=== PATIENT | male | born 1970 | race Caucasian/White ===

== ENCOUNTER → 2017-01-25 | Outpatient (CLI) | payer OTHER ==
[2017-01-25 12:40] LABS: ALT/SGPT 25 U/L (12-78); BLOOD UREA NITROGEN 11 mg/dl (7-18); BUN/CREATININE RATIO 9.8 (10-20); CALCIUM 9.3 mg/dl (8.5-10.1); CARBON DIOXIDE 30 mmol/L (21-32); CHLORIDE 105 mmol/L (98-107); CHOLESTEROL 213 mg/dl (0-200); GLUCOSE,FASTING 93 mg/dl (70-99); POTASSIUM 4.3 mmol/L (3.5-5.1); SODIUM 139 mmol/L (136-145); TRIGLYCERIDES 140 mg/dl (0-150); VERY LOW DENSITY LIPOPROT CALC 28 mg/dl
[2017-01-25 12:50] LABS: ALB/GLOB RATIO 1.3 (0.9-2); ALKALINE PHOSPHATASE 78 U/L (45-117); AST/SGOT 18 U/L (15-37); CHOLESTEROL/HDL RATIO 4.8; HDL CHOLESTEROL 44 mg/dl; LDL CHOLESTEROL CALCULATED 141 mg/dl
[2017-01-25 13:49] LABS: LYME DISEASE AB IGM NEG (NEG)
[2017-01-25 13:52] LABS: LYME DISEASE AB IGG NEG (NEG)
--- NOTE | 2017-02-02 10:14 | CODING QUERY MEDICAL NECESSITY ---
SUPPORTING DIAGNOSIS NEEDED Binu WISE, A supporting diagnosis is required for the test/procedure performed on this patient in order for us to be reimbursed by the patient's insurance. Please provide a supporting diagnosis for the following test/procedure listed below next to the test name along with your signature. *If there is no additional diagnosis for this patient that would support the following test/procedure please document that below next to the test/procedure. Test(s)/Procedure(s) that require a supporting diagnosis: * 22771 VITAMIN D ASSAY DIAGNOSIS: DATE OF SERVICE: 01/25/17 Provider Signature: Date: Thank you Dipesh Liao [facility] Information Management Once completed, please kindly fax back to [phone] For questions please call [phone]
== END | disposition home or self-care (01) ==
LOC: C.LABPBG 09:03
PROVIDERS: ATTEND Physician Assistant
DX: Z00.00 Encounter for general adult medical examination without abnormal findings (principal); Z13.21 Encounter for screening for nutritional disorder; R53.83 Other fatigue

== ENCOUNTER 2017-05-14 10:36 | Emergency (ER) | payer OTHER ==
[~2017-05-14] VITALS: Ht 180.3 cm; Wt 82.7 kg
[2017-05-14] MEDS ORDERED: NITROGLYCERIN 0.4 MG SL PER TAB CHARGE ONE (10:40)
[2017-05-14 10:42] VITALS: TEMP 36.9; Ht 180.3 cm; Wt 82.7 kg
[2017-05-14] MEDS: MoRPHine SULFATE 10 MG/ML CARP/VIAL IV PRN ×2 (10:50→12:46)
[2017-05-14 10:54] VITALS: O2SAT 100
--- NOTE | 2017-05-14 10:58 | EMERGENCY ROOM VISIT NOTE ---
History Report prepared by Brittany: Radames Craven Under the Supervision of: Dr. Cipriano Schwarz M.D. 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 He currently rates his pain a 9/10 in severity. The patient notes he went to [facility] and was prescribed ASA. He notes the chest pain did not subside and the clinic notified EMS. EMS administered 50 mcg of fentanyl, 1 dose of NTG, 4 mg Zofran, and 4 mg IV morphine. The patient denies any shortness of breath. He has a history of HTN, though denies any history of LA or HLD. 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 Please see Additional Medical History Sheet. Past Medical & Surgical Medical Problems: (1) HTN (hypertension) Family History Cancer Diabetes mellitus Gallbladder disease Hypertension Lung disease Social History Smoking Status: Current Every Day Smoker (3 ppd) Alcohol Use: none Drug Use: none Marital Status: Housing Status: lives with significant other Occupation Status: employed Current/Historical Medications Scheduled Lisinopril (Zestril), 30 MG PO DAILY Multivitamin (Multivitamin), 1 TAB PO DAILY Ranitidine Hcl (Zantac), 150 MG PO BID Scheduled PRN Oxycodone/Acetaminophen 5MG/325MG (Percocet 5MG/325MG), 1-2 TABLETS PO Q4H PRN for Pain Allergies Coded Allergies: No Known Allergies (Unverified , 05/14/17) Physical Exam Vital Signs Date Time Temp Pulse Resp B/P (MAP) Pulse Ox O2 Delivery O2 Flow Rate FiO2 05/14/17 15:01 80 18 116/72 98 Room Air 05/14/17 14:43 73 05/14/17 12:48 73 18 140/92 98 Room Air 05/14/17 11:20 85 19 113/70 100 Nasal Cannula 2.0 05/14/17 11:03 77 20 105/68 100 Nasal Cannula 2.0 05/14/17 10:54 100 Nasal Cannula 2.0 05/14/17 10:53 100 Nasal Cannula 2.0 05/14/17 10:53 93 20 143/91 100 Nasal Cannula 2.0 05/14/17 10:42 36.9 92 21 151/95 100 Room Air 05/14/17 10:42 100 Room Air 05/14/17 10:39 95 Physical Exam GENERAL: Patient awake, alert, oriented x 3. Patient follows commands. Patient does not appear toxic. Patient is adequately hydrated and well- nourished. Patient is in marked distress. SKIN: No erythema, pallor, cyanosis or rash HEENT: Normal head, pupils equal, reactive to light and accommodation. LUNGS: Clear to auscultation. No wheezes, no rales, no rhonchi. HEART: Regular rate and rhythm. No murmurs. No gallops. No rubs ABDOMEN: No masses, no rebound, no hepatomegaly or splenomegaly. EXTREMITIES: No signs of trauma. No pedal or pretibial edema. No calf or thigh tenderness. NEUROLOGIC: Cranial nerves II-XII within normal limits. No gross motor sensory function deficits. Medical Decision & Procedures ER Provider Diagnostic Interpretation: Radiology results as stated below per my review and radiologist interpretation: CHEST ONE VIEW PORTABLE CLINICAL HISTORY: Atypical chest pain COMPARISON STUDY: No previous studies for comparison. FINDINGS: The cardiac and mediastinal contours are normal. There is no evidence of focal pulmonary consolidation. There is no evidence of failure. No pleural effusions are visualized.[ IMPRESSION: No active disease in the chest. Electronically signed by: Franco Cobb M.D. 05/14/2017 11:05 AM Dictated Date/Time: 05/14/2017 11:[address] ANGIOGRAM OF THE CHEST CLINICAL HISTORY: Atypical chest pain COMPARISON STUDY: No previous studies for comparison. TECHNIQUE: Following the IV administration of 115 mL of Optiray-320, CT angiogram of the thorax was performed from the thoracic inlet to the lung bases utilizing the pulmonary embolus protocol. Images are reviewed in the axial, sagittal, and coronal planes. IV contrast was administered without complication. MIP imaging was performed. A dose lowering technique was utilized adhering to the principles of ALARA. CT DOSE: 369.09 mGy.cm FINDINGS: There is abnormal mid and distal esophageal wall thickening. There is abnormal soft tissue adjacent to the right side of the esophagus with the posterior mediastinum, consistent with mass/adenopathy. The ascending thoracic aorta measures 41 mm. There were no pulmonary artery filling defects to indicate acute pulmonary embolism. No pleural effusions are visualized. There are dependent atelectatic changes. There is no focal pulmonary consolidation. There is a 4 mm left upper lobe pulmonary nodule as visualized in image #[id number] IMPRESSION: 1. Abnormal wall thickening involving the mid and distal esophagus. 2. Abnormal soft tissue within the right posterior mediastinum esophageal region consistent with mass/adenopathy 3. GI consultation for endoscopic follow-up is recommended 4. 4 mm left upper lobe pulmonary nodule 5. No evidence of acute pulmonary embolism. Electronically signed by: Franco Cobb M.D. 05/14/2017 1:42 PM Dictated Date/Time: 05/14/2017 1:34 PM Laboratory Results 05/14/17 10:45 Red Blood Count 4.66, Mean Corpuscular Volume 88.0, Mean Corpuscular Hemoglobin 31.1, Mean Corpuscular Hemoglobin Concent 35.4, Mean Platelet Volume 9.2, Neutrophils (%) (Auto) 73.6, Lymphocytes (%) (Auto) 16.8, Monocytes (%) (Auto) 7.9, Eosinophils (%) (Auto) 1.3, Basophils (%) (Auto) 0.2, Neutrophils # (Auto) 9.42, Lymphocytes # (Auto) 2.15, Monocytes # (Auto) 1.01, Eosinophils # (Auto) 0.17, Basophils # (Auto) 0.02 05/14/17 10:45 Test 05/14/17 10:45 05/14/17 12:16 White Blood Count 12.80 K/uL (4.8-10.8) Red Blood Count 4.66 M/uL (4.7-6.1) Hemoglobin 14.5 g/dL (14.0-18.0) Hematocrit 41.0 % (42-52) Mean Corpuscular Volume 88.0 fL (80-100) Mean Corpuscular Hemoglobin 31.1 pg (25-34) Mean Corpuscular Hemoglobin Concent 35.4 g/dl (32-36) Platelet Count 244 K/uL (130-400) Mean Platelet Volume 9.2 fL (7.4-10.4) Neutrophils (%) (Auto) 73.6 % Lymphocytes (%) (Auto) 16.8 % Monocytes (%) (Auto) 7.9 % Eosinophils (%) (Auto) 1.3 % Basophils (%) (Auto) 0.2 % Neutrophils # (Auto) 9.42 K/uL (1.4-6.5) Lymphocytes # (Auto) 2.15 K/uL (1.2-3.4) Monocytes # (Auto) 1.01 K/uL (0.11-0.59) Eosinophils # (Auto) 0.17 K/uL (0-0.5) Basophils # (Auto) 0.02 K/uL (0-0.2) RDW Standard Deviation 44.9 fL (36.4-46.3) RDW Coefficient of Variation 14.0 % (11.5-14.5) Immature Granulocyte % (Auto) 0.2 % Immature Granulocyte # (Auto) 0.03 K/uL (0.00-0.02) Erythrocyte Sedimentation Rate 2 mm/hr (0-14) Prothrombin Time 10.2 SECONDS (9.0-12.0) Prothromb Time International Ratio 1.0 (0.9-1.1) Activated Partial Thromboplast Time 32.0 SECONDS (21.0-31.0) Partial Thromboplastin Ratio 1.2 Anion Gap 8.0 mmol/L (3-11) Est Creatinine Clear Calc Drug Dose 103.4 ml/min Estimated GFR () 111.5 Estimated GFR (Non- 96.2 BUN/Creatinine Ratio 22.9 (10-20) Calcium Level 9.4 mg/dl (8.5-10.1) Total Bilirubin 0.6 mg/dl (0.2-1) Aspartate Amino Transf (AST/SGOT) 17 U/L (15-37) Alanine Aminotransferase (ALT/SGPT) 27 U/L (12-78) Alkaline Phosphatase 84 U/L (45-117) Total Protein 7.3 gm/dl (6.4-8.2) Albumin 4.1 gm/dl (3.4-5.0) Globulin 3.2 gm/dl (2.5-4.0) Albumin/Globulin Ratio 1.3 (0.9-2) Bedside Troponin I < 0.030 ng/ml (0-0.045) Laboratory results as stated above per my review. Medications Administered Medications (Trade) Dose Ordered Sig/Simon Route Start Time Stop Time Status Last Admin Dose Admin Nitroglycerin (Nitrostat Tab) 0.4 mg STK-MED ONCE .ROUTE 05/14/17 10:40 05/14/17 10:41 DC 05/14/17 10:40 0.4 MG Morphine Sulfate (MoRPHine SULFATE INJ) 6 mg Q1H PRN IV 05/14/17 10:45 05/14/17 15:55 DC 05/14/17 12:46 6 MG ECG Indication: chest pain Rate (beats per minute): 82 Rhythm: normal sinus Findings: no acute ischemic change, no ectopy, other (Slight J point elevation) Change: Repeat ECG: NSR 67 Findings: Unchanged from previous. ED Course 1038: Past medical records reviewed. The patient was evaluated in room B1. A complete history and physical examination was performed. 1040: Ordered NTG 0.4 mg SL 1045: Ordered Morphine Sulfate 6 mg IV 1055: The patient was moved to C10. 1233: I reassessed the patient at this time. He is feeling better and resting comfortably. 1436: I reassessed the patient at this time. He is feeling better and resting comfortably. I discussed the results and treatment plan with the patient. I answered all pertaining questions that he had. He expressed understanding and verbalized agreement. The patient will be discharged home. Medical Decision Prior records/ancillary studies reviewed. Triage Nursing notes reviewed. The patient's history was concerning for chest pain. Differential diagnosis: Etiologies such as cardiac ischemia, aortic dissection, pulmonary embolism, pneumonia, pneumothorax, musculoskeletal, infections, pericarditis, myocarditis , esophageal rupture, gastrointestinal, as well as others were entertained. The patient is here with substernal chest pain. He arrived via ambulance and I gave medical command prior to his arrival. Multiple labs, EKG and imaging were obtained. Please see above. White count is slightly elevated. 2 sets of troponins were not elevated. EKG was unremarkable. The patient did not get relief with nitroglycerin. The patient was given multiple doses of morphine to control his pain. A CT was obtained to rule out possibility for PE. The CT did reveal a questionable mass behind his esophagus. This is most likely the cause of his pain. I'm concerned about possible esophageal cancer. At this point, I do not believe he has an esophageal rupture. The patient will need endoscopy. The patient wants to go home and is not willing to stay in the hospital at this time. He will be given a prescription for Percocet and and Ranitadine. Case management has been consulted to arrange GI follow-up [place] Drug Monitoring Program Search Results: no issues identified Medication Reconcilliation Current Medication List: was personally reviewed by me Blood Pressure Screening Patient's blood pressure: Normal blood pressure Impression Primary Impression: Esophageal mass Scribe Attestation The scribe's documentation has been prepared under my direction and personally reviewed by me in its entirety. I confirm that the note above accurately reflects all work, treatment, procedures, and medical decision making performed by me. Departure Information Dispostion Home / Self-Care Prescriptions Oxycodone/Acetaminophen 5MG/325MG (PERCOCET 5MG/325MG) Tab 1-2 TABLETS PO Q4H Y for Pain, #20 TAB Prov: Cipriano Schwarz M.D. 05/14/17 Ranitidine Hcl (ZANTAC) 150 Mg Tab 150 MG PO BID, #30 TAB Prov: Cipriano Schwarz M.D. 05/14/17 Referrals Dm Diggs D.OPedro (PCP) Forms Call Back Authorization, HOME CARE DOCUMENTATION FORM, IMPORTANT VISIT INFORMATION Patient Instructions My [facility] Additional Instructions 1 Percocet every 4 hours as needed for moderate to severe pain. 1 Zantac/ranitidine twice a day. Follow-up with your family physician and telephone answering service operator as soon as possible.
[2017-05-14 11:01] LABS: BASO % 0.2 %; BASO ABS # 0.02 K/uL (0-0.2); EOS % 1.3 %; EOS ABS # 0.17 K/uL (0-0.5); HEMOGLOBIN 14.5 g/dL (14.0-18.0); IG# 0.03 K/uL (0.00-0.02); LYMPH % 16.8 %; LYMPH ABS # 2.15 K/uL (1.2-3.4); MEAN CORPUSCULAR HEMOGLOBIN 31.1 pg (25-34); MEAN CORPUSCULAR HGB CONC 35.4 g/dl (32-36); MEAN PLATELET VOLUME 9.2 fL (7.4-10.4); MONO % 7.9 %; MONO ABS # 1.01 K/uL (0.11-0.59); NEUT % 73.6 %; NEUT ABS # 9.42 K/uL (1.4-6.5); PLATELET COUNT 244 K/uL (130-400); RED CELL DISTRIBUTION WIDTH SD 44.9 fL (36.4-46.3)
--- NOTE | 2017-05-14 11:07 | DIAGNOSTIC IMAGING REPORT ---
CHEST ONE VIEW PORTABLE CLINICAL HISTORY: Atypical chest pain COMPARISON STUDY: No previous studies for comparison. FINDINGS: The cardiac and mediastinal contours are normal. There is no evidence of focal pulmonary consolidation. There is no evidence of failure. No pleural effusions are visualized.[ IMPRESSION: No active disease in the chest. Electronically signed by: Franco Cobb M.D. 05/14/2017 11:05 AM Dictated Date/Time: 05/14/2017 11:05 AM
[2017-05-14 11:18] LABS: ALBUMIN 4.1 gm/dl (3.4-5.0); CALCIUM 9.4 mg/dl (8.5-10.1); CREATININE 0.94 mg/dl (0.60-1.40); POTASSIUM 3.5 mmol/L (3.5-5.1)
[2017-05-14 11:20] LABS: TOTAL PROTEIN 7.3 gm/dl (6.4-8.2)
[2017-05-14] MEDS ORDERED: MULT-506 PO (11:22)
[2017-05-14] MEDS ORDERED: LISI-863 PO (11:22)
[2017-05-14] MEDS ORDERED: OPTIRAY 320 IV PRN (13:00)
--- NOTE | 2017-05-14 13:43 | DIAGNOSTIC IMAGING REPORT ---
CT ANGIOGRAM OF THE CHEST CLINICAL HISTORY: Atypical chest pain COMPARISON STUDY: No previous studies for comparison. TECHNIQUE: Following the IV administration of 115 mL of Optiray-320, CT angiogram of the thorax was performed from the thoracic inlet to the lung bases utilizing the pulmonary embolus protocol. Images are reviewed in the axial, sagittal, and coronal planes. IV contrast was administered without complication. MIP imaging was performed. A dose lowering technique was utilized adhering to the principles of ALARA. CT DOSE: 369.09 mGy.cm FINDINGS: There is abnormal mid and distal esophageal wall thickening. There is abnormal soft tissue adjacent to the right side of the esophagus with the posterior mediastinum, consistent with mass/adenopathy. The ascending thoracic aorta measures 41 mm. There were no pulmonary artery filling defects to indicate acute pulmonary embolism. No pleural effusions are visualized. There are dependent atelectatic changes. There is no focal pulmonary consolidation. There is a 4 mm left upper lobe pulmonary nodule as visualized in image #[id number] IMPRESSION: 1. Abnormal wall thickening involving the mid and distal esophagus. 2. Abnormal soft tissue within the right posterior mediastinum esophageal region consistent with mass/adenopathy 3. GI consultation for endoscopic follow-up is recommended 4. 4 mm left upper lobe pulmonary nodule 5. No evidence of acute pulmonary embolism. Electronically signed by: Franco Cobb M.D. 05/14/2017 1:42 PM Dictated Date/Time: 05/14/2017 1:34 PM
[2017-05-14] MEDS ORDERED: RANI150T3 PO (14:50)
[2017-05-14] MEDS ORDERED: OXYC-57 PO (14:50)
[2017-05-14 15:01] VITALS: BP 116/72; PULSE 80; O2SAT 98
[2017-05-18] MEDS ORDERED: OXYC-57 PO (11:43)
[2017-05-18] MEDS ORDERED: RANI150T85 PO (11:54)
[2017-11-19] MEDS ORDERED: CEPH500C PO (09:14)
== END 2017-05-14 15:23 | disposition home or self-care (01) ==
LOC: EDBD 10:36 → C.EDB 10:38 → C.EDC 15:23
DX: K22.9 Disease of esophagus, unspecified (principal); I10 Essential (primary) hypertension; Z80.9 Family history of malignant neoplasm, unspecified; Z83.3 Family history of diabetes mellitus; Z82.49 Family history of ischemic heart disease and other diseases of the circulatory system; F17.210 Nicotine dependence, cigarettes, uncomplicated; Z79.899 Other long term (current) drug therapy

== ENCOUNTER → 2017-05-19 | Day surgery (SDC) | payer OTHER ==
[2017-05-18 11:44] VITALS: BMI 23.0
[~2017-05-19] VITALS: Ht 180.3 cm; Wt 77.3 kg
[~2017-05-19] MED LIST: CEPH500C PO; FENTANYL CITRATE INJ 50 MCG/1 ML 2 ML VIAL ONE; LIDOCAINE HCL 2% 2 ML VIAL (20MG/ML) ONE; LISI-863 PO; MULT-506 PO; OXYC-57 PO; PROPOFOL IV EMULSION 10 MG/ML 20 ML VIAL IV ONE; RANI150T85 PO
[2017-05-19 08:18] VITALS: Ht 180.3 cm; Wt 77.3 kg
--- NOTE | 2017-05-19 09:21 | Endo History and Physical ---
History & Physical Date of Service: May 19, 2017. Chief Complaint: ABNORMAL CT SCAN Referring Physician: DR CATINA YOU History of Present Illness Chest pain with abnormal CT Past Surgical History Hx Cardiac Surgery: No Hx Internal Defibrillator: No Hx Pacemaker: No Hx Abdominal Surgery: No Hx of Implantable Prosthesis: No Hx Post-Op Nausea and Vomiting: No Hx Cancer Surgery: No Hx Thoracic Surgery: No Hx Orthopedic: Yes (RT KNEE SX, LEFT KNEE SX X 3) Hx Urinary Tract Surgery: No Family History IBD Social History Smoking Status: Current Every Day Smoker Hx Substance Use: No Hx Alcohol Use: No Allergies Coded Allergies: No Known Allergies (Verified , 05/19/17) Current Medications Reported Home Medications Medications Dose Route/Sig Max Daily Dose Days Date Category Dose Instructions Zantac (Ranitidine HCl) 150 Mg Tab 150 Mg PO BID 05/18/17 Reported Percocet 5MG/325MG (Oxycodone/Acetaminophen) Tab 1 Tablet PO BID PRN 05/18/17 Reported PAIN Multivitamin (Multivitamins) Tab 1 Tab PO QAM 05/14/17 Reported Zestril (Lisinopril) 30 Mg Tab 30 Mg PO QAM 05/14/17 Reported Vital Signs Weight (Kilograms): 77.27 Height (Feet): 5 Height (Inches): 11 Date Time Temp Pulse Resp B/P (MAP) Pulse Ox O2 Delivery O2 Flow Rate FiO2 05/19/17 08:17 36.7 71 18 121/75 (90) 100 Room Air Physical Exam General Appearance: WD/WN, no apparent distress Respiratory/Chest: Auscultation: breath sounds normal Cardiovascular: Heart Auscultation: RRR Abdomen: Inspection & Palpation: soft Assessment and Plan EGD
--- NOTE | 2017-05-19 09:49 | GI REPORT ---
Procedure Date: 05/19/2017 8:37 AM Procedure: Upper GI endoscopy Indications: Abnormal CT of the GI tract, Unexplained chest pain Medicines: Monitored Anesthesia Care Complications: No immediate complications. Estimated blood loss: None. Estimated Blood Loss: Estimated blood loss: none. Procedure: Pre-Anesthesia Assessment: - Prior to the procedure, a History and Physical was performed, and patient medications, allergies and sensitivities were reviewed. The patient's tolerance of previous anesthesia was reviewed. - ASA Grade Assessment: III - A patient with severe systemic disease. After obtaining informed consent, the endoscope was passed under direct vision. Throughout the procedure, the patient's blood pressure, pulse, and oxygen saturations were monitored continuously. The scope was introduced through the mouth, and advanced to the third part of duodenum. The upper GI endoscopy was accomplished with ease. The patient tolerated the procedure well. Findings: The upper third of the esophagus, middle third of the esophagus and lower third of the esophagus were normal. Biopsies were taken with a cold forceps for histology. The Z-line was slightly irregular and was found 45 cm from the incisors. Biopsies were taken with a cold forceps for histology. The entire examined stomach was normal. Biopsies were taken with a cold forceps for Helicobacter pylori testing. The examined duodenum was normal. Impression: - Normal upper third of esophagus, middle third of esophagus and lower third of esophagus. Biopsied. - Z-line slightly irregular, 45 cm from the incisors. Biopsied. - Normal stomach. Biopsied. - Normal examined duodenum. Recommendation: - Await pathology results. - Consider referral to manager printing. Porter Patel M.D. Porter Patel MD 05/19/2017 9:48:56 AM This report has been signed electronically. Note Initiated On: 05/19/2017 8:37 AM I attest to the content of the Intraoperative Record and orders documented therein, exceptions below
--- NOTE | 2017-05-19 09:51 | Discharge Instructions ---
Endoscopy Patient Instructions Date / Procedure(s) Performed May 19, 2017. EGD Allergy Information Coded Allergies: No Known Allergies (Verified , 05/19/17) Discharge Date / Findings May 19, 2017. Normal EGD, biopsies pending. Medication Instructions Restart Stopped Medication(s): Restart all medications today. Provider Instructions Activity Restrictions - No exercising or heavy lifting for 24 hours. - Do not drink alcohol the day of the procedure. - Do not drive a car or operate machinery until the day after the procedure. - Do not make any important decisions or sign important papers in 24 hours after the procedure. Following Day: - Return to full activity which may include returning to work/school. Diet Start your diet with liquids and light foods (jello, soup, juice, toast). Then eat your usual diet if not nauseated. Treatment For Common After Affects For mild abdominal pain, bloating, or excessive gas: - Rest - Eat lightly - Lie on right side Follow-Up Information Follow-up with DR CATINA YOU as scheduled Anesthesia Information What You Should Know You have had a procedure that required some medicine to reduce anxiety and discomfort. This treatment is called moderate sedation. After receiving the treatment, you may be sleepy, but you will be able to breathe on your own. The effects of the treatment may last for several hours. Follow these instructions along with Activity/Diet recommendations noted above: * Do NOT do anything where dizziness or clumsiness would be dangerous. * Rest quietly at home today, then you can be up and about tomorrow. * Have a responsible person stay with you the rest of today. * You may have had an I.V. today. If so, you may take the dressing off later today. Recommendations Call your doctor if: * Trouble breathing * Continuous vomiting for more than 24 hours * Temperature above 101 degrees * Severe abdominal pain or bloating * Pain not relieved by pain medicine ordered * There is increased drainage or redness from any incision * A large amount of rectal bleeding greater than 2-3 tablespoons. (If you had a polyp/s removed or have hemorrhoids, a small amount of blood - from the rectum is to be expected.) * You have any unanswered questions or concerns. IN THE EVENT OF A SERIOUS EMERGENCY, GO TO THE NEAREST EMERGENCY ROOM Your discharge instructions were prepared by provider Porter Patel. Patient Instructions Signature Page Samuel Guillen Patient (or Guardian) Signature/Date: I have read and understand the instructions given to me by my caregivers. Caregiver/RN/Doctor Signature/Date: The above-named patient and/or guardian has received patient instructions on this date. + Original Patient Signature Page (only) stays with chart. Please make copy for patient.
--- NOTE | 2017-05-19 10:08 | Anesthesiology Progress Note ---
Anesthesia Post Op Note Date & Time May 19, 2017 at 10:08 Vital Signs Pain Intensity: 0 Vital Signs Past 12 Hours Date Time Temp Pulse Resp B/P (MAP) Pulse Ox O2 Delivery O2 Flow Rate FiO2 05/19/17 10:02 75 18 107/77 (87) 98 Room Air 05/19/17 09:47 75 18 108/62 (77) 97 Room Air 05/19/17 08:17 36.7 71 18 121/75 (90) 100 Room Air Notes Mental Status: alert / awake / arousable, participated in evaluation Pt Amnestic to Procedure: Yes Nausea / Vomiting: adequately controlled Pain: adequately controlled Airway Patency, RR, SpO2: stable & adequate BP & HR: stable & adequate Hydration State: stable & adequate Anesthetic Complications: no major complications apparent
[2017-05-19 10:17] VITALS: BP 106/70; PULSE 71; O2SAT 99
== END | disposition home or self-care (01) ==
LOC: C.GI 08:00
PROVIDERS: ATTEND Internal Medicine Gastroenterology
DX: R93.3 Abnormal findings on diagnostic imaging of other parts of digestive tract (principal); R07.9 Chest pain, unspecified; F17.200 Nicotine dependence, unspecified, uncomplicated; I10 Essential (primary) hypertension

== ENCOUNTER → 2017-06-26 | Outpatient (CLI) | payer OTHER ==
[~2017-06-26] MED LIST changes: -CEPH500C PO; -FENTANYL CITRATE INJ 50 MCG/1 ML 2 ML VIAL ONE; -LIDOCAINE HCL 2% 2 ML VIAL (20MG/ML) ONE; -LISI-863 PO; +LISI1TAB3 PO; +OPTIRAY 320 IV PRN; -PROPOFOL IV EMULSION 10 MG/ML 20 ML VIAL IV ONE; -RANI150T85 PO; +ZNTT/150 PO
--- NOTE | 2017-06-26 07:48 | DIAGNOSTIC IMAGING REPORT ---
CT ANGIOGRAM OF THE CHEST CLINICAL HISTORY: Pulmonary nodule. Mediastinal lesion. COMPARISON STUDY: Chest CT dated 05/14/2017. TECHNIQUE: Following the IV administration of 115 cc of Optiray 320, CT angiogram of the chest was performed from the upper abdomen to the thoracic inlet utilizing the pulmonary embolus protocol. Images are reviewed in the axial, sagittal, and coronal planes. 3-D MIPS images are created and assessed. IV contrast was administered without complication. A dose lowering technique was utilized adhering to the principles of ALARA. CT DOSE: 320.88 mGy.cm FINDINGS: Thyroid: Imaged portions of the thyroid gland are normal in size and attenuation. Thoracic aorta: There is mild ectasia of the ascending thoracic aorta which measures up to 4.1 cm. The remainder of the thoracic aorta is normal in caliber. The arch demonstrates standard 3-vessel anatomy. No dissection is seen. Pulmonary vasculature: The pulmonary trunk is normal in caliber. There are no filling defects identified in main, lobar, or segmental pulmonary branches to suggest pulmonary embolus. Heart: The heart is top normal in size and without pericardial effusion. Lungs and pleural spaces: There is no airspace consolidation or pleural effusion. Mild diffuse peribronchial thickening is noted. Dependent atelectasis is observed. There is an indeterminant but low suspicion 5 mm left upper lobe pulmonary nodule seen on image #165. This is unchanged from 05/14/2017. No new pulmonary nodule is seen. The trachea and central airways are clear. Mediastinum: Soft tissue thickening in the posterior mediastinum has almost completely resolved from 05/14/2017. Mild esophageal wall thickening is questioned. No mediastinal lymphadenopathy is seen. Anabel: Clear. Axillae: There is no axillary lymphadenopathy. Upper abdomen: There is a tiny hiatal hernia. Partially visualized upper abdominal viscera is within normal limits. Skeletal structures: No lytic or blastic bony lesions are seen. IMPRESSION: 1. There is no evidence of pulmonary embolus in the main, lobar, or segmental pulmonary arteries. 2. Abnormal soft tissue within the posterior mediastinum and around the esophagus has almost completely resolved from 05/14/2017. No pathologically enlarged mediastinal lymph nodes are identified. 3. Mild esophageal wall thickening is again suggested. If not already performed endoscopy could be considered for further assessment. 4. There is no airspace consolidation or pleural effusion. Mild diffuse peribronchial thickening suggests reactive airway disease. Clinical correlation will be required. 5. There is mild ectasia of the ascending thoracic aorta which measures up to 4.1 cm. The remainder of the thoracic aorta is normal in caliber. 6. A pathologically indeterminant but low suspicion 5 mm left upper lobe pulmonary nodule is unchanged. No new pulmonary nodule is identified. This can be followed if clinically warranted. See below. Please refer to below summary of Fleischner criteria recommendations for follow-up of incidental CT nodules ([place], Guidelines for management of small pulmonary nodules detected on CT scans: A statement from the Fleischner Society, Radiology 237: [phone].) SOLID NODULES Solitary nodule size: <6 mm * low risk patients: no follow-up needed * high risk patients: optional CT at 12 months Solitary nodule size: 6-8 mm * low risk patients: follow-up at 6-12 months, then consider further follow-up at 18-24 months * high risk patients: initial follow-up CT at 6-12 months and then at 18-24 months if no change Solitary nodule size: >8 mm * either low or high risk patients - consider follow-up CT at 3 months, and/or CT-PET, and/or biopsy Multiple nodules size: <6 mm * low risk patients: no routine follow-up * high risk patients: optional CT at 12 months Multiple nodules size: 6-8 mm * low risk patients: follow-up at 3-6 months, then consider further follow-up at 18-24 months * high risk patients: follow-up at 3-6 months, then at 18-24 months if no change Multiple nodules size: >8 mm * low risk patients: follow-up at 3-6 months, then consider further follow-up at 18-24 months * high risk patients: follow-up at 3-6 months, then at 18-24 months if no change Note: newly detected indeterminate nodule in persons 35 years of age or older. * low risk patients: minimal or absent history of smoking and/or other known risk factors * high risk patients: history of smoking or of other known risk factors (e.g. first degree relative with lung cancer, or exposure to asbestos, radon, uranium) * if a nodule up to 8 mm is partly solid or is ground glass further follow-up is required after 24 months to exclude possible slow growing adenocarcinoma ([facility]) SUBSOLID NODULES Solitary pure ground-glass nodule * nodule size <6 mm - no CT follow-up required * nodule size >=6 mm - follow-up CT at 6-12 months, then every 2 years until 5 years Solitary part-solid nodule * nodule size <6 mm - no CT follow-up required * nodule size >=6 mm - follow-up CT at 3-6 months. If unchanged, and solid component remains <6 mm, then annual follow-up for 5 years Multiple subsolid nodules * nodule size <6 mm - follow-up CT at 3-6 months, consider further follow-up at 2 and 4 years if stable * nodule size >=6 mm - follow-up CT at 3-6 months, subsequent management based on the most suspicious nodule(s) Electronically signed by: Silvio Alexis M.D. 06/26/2017 7:46 AM Dictated Date/Time: 06/26/2017 7:38 AM
== END | disposition home or self-care (01) ==
LOC: C.CTS 06:45
PROVIDERS: ATTEND Internal Medicine Critical Care Medicine
DX: R91.1 Solitary pulmonary nodule (principal); J98.59 Other diseases of mediastinum, not elsewhere classified

== ENCOUNTER → 2017-07-05 | Outpatient (CLI) | payer OTHER ==
[~2017-07-05] MED LIST changes: -OPTIRAY 320 IV PRN; +RANI150T85 PO; -ZNTT/150 PO
--- NOTE | 2017-07-05 18:46 | DIAGNOSTIC IMAGING REPORT ---
CHEST 2 VIEWS ROUTINE CLINICAL HISTORY: ABNORMAL LUNG SOUNDS dyspnea COMPARISON STUDY: 05/14/2017 FINDINGS: The bones soft tissues and hemidiaphragms are normal. The cardiomediastinal silhouette is normal. The lungs are clear. The pulmonary vasculature is normal. IMPRESSION: Negative chest. The above report was generated using voice recognition software. It may contain grammatical, syntax or spelling errors. Electronically signed by: Robert Flores M.D. 07/05/2017 6:45 PM Dictated Date/Time: 07/05/2017 6:45 PM
--- NOTE | 2017-07-05 18:47 | DIAGNOSTIC IMAGING REPORT ---
L HAND MIN 3 VIEWS ROUTINE CLINICAL HISTORY: MASS OF HAND pain. Mass. COMPARISON: None. DISCUSSION: The bones and joint spaces appear intact. There is no evidence of fracture, dislocation or bony disease. There is no evidence for soft tissue swelling. IMPRESSION: Negative study. The above report was generated using voice recognition software. It may contain grammatical, syntax or spelling errors. Electronically signed by: Robert Flores M.D. 07/05/2017 6:46 PM Dictated Date/Time: 07/05/2017 6:45 PM
== END | disposition home or self-care (01) ==
LOC: C.RAD 18:18
PROVIDERS: ATTEND Physician Assistant
DX: R09.89 Other specified symptoms and signs involving the circulatory and respiratory systems (principal); R22.30 Localized swelling, mass and lump, unspecified upper limb

== ENCOUNTER → 2017-08-02 | Outpatient (CLI) | payer OTHER ==
[2017-08-02 17:27] LABS: BASO % 0.5 %; BASO ABS # 0.04 K/uL (0-0.2); EOS % 3.6 %; HEMOGLOBIN 13.4 g/dL (14.0-18.0); IG# 0.01 K/uL (0.00-0.02); LYMPH % 29.1 %; LYMPH ABS # 2.43 K/uL (1.2-3.4); MEAN CELL VOLUME 89.7 fL (80-100); MEAN CORPUSCULAR HEMOGLOBIN 29.3 pg (25-34); MEAN CORPUSCULAR HGB CONC 32.7 g/dl (32-36); MEAN PLATELET VOLUME 9.7 fL (7.4-10.4); MONO % 5.9 %; MONO ABS # 0.49 K/uL (0.11-0.59); NEUT % 60.8 %; NEUT ABS # 5.09 K/uL (1.4-6.5); PLATELET COUNT 242 K/uL (130-400); RED CELL DISTRIBUTION WIDTH SD 46.2 fL (36.4-46.3); WHITE BLOOD COUNT 8.36 K/uL (4.8-10.8)
[2017-08-02 17:47] LABS: BLOOD UREA NITROGEN 15 mg/dl (7-18); CALCIUM 9.1 mg/dl (8.5-10.1); CARBON DIOXIDE 29 mmol/L (21-32); CREATININE 0.93 mg/dl (0.60-1.40); GLUCOSE 86 mg/dl (70-99); SODIUM 137 mmol/L (136-145)
== END | disposition home or self-care (01) ==
LOC: C.LABPBG 15:27
PROVIDERS: ATTEND Family Medicine
DX: R53.83 Other fatigue (principal); E55.9 Vitamin D deficiency, unspecified

== ENCOUNTER 2019-04-02 04:54 | Inpatient (IN) ==
--- NOTE | 2019-03-01 15:35 | PAT Medication Instructions ---
Medication Instructions Date of Service March 01, 2019 Home Medications lisinopril 20 mg PO QAM DO NOT take the morning of surgery lisinopril 20 mg PO QAM Other Notes If you have any questions please call us at [phone] or [phone] or [phone] or [phone]
--- NOTE | 2019-03-04 08:28 | Anesthesiology Consultation ---
Date of Service March 04, 2019 Assessment & Plan (1) Encounter for pre-operative examination: Chart Review Chart Review: Pending: Refer to Additional Notes / Consult section (pending preop testing (labs, EKG)) and Patient seen in Pre Admission Testing Teaching & Discussion Pre-Anesthesia Teaching/Discussion Notes: Instructed NPO after midnight before surgery,except medications with 15 cc of water. Medication instructions provided according to the PAT guidelines. History Surgery Operation Date: 04/02/19 08:50 Proposed Procedures p Bilateral Total Knee Replacements - Sj Crump MD Height/Weight Height: 5 ft 9 in Weight: 80.4 kg Allergies Allergy/AdvReac Type Severity Reaction Status Date / Time No Known Allergies Allergy Verified 02/25/19 08:00 Medications Home Medications Medication Instructions Recorded Confirmed Last Taken lisinopril 20 mg PO QAM 02/25/19 02/25/19 Unknown Past Medical History Medical History Dyslipidemia per records Acid reflux hx Nodule of left lung Thoracic aortic aneurysm incidental finding on 05/[address] with no evidence of aneurysm on f/u chest CT 05/2018*- PCP monitoring Hypertension [address]-Schlatter's disease left knee Osteoarthritis Exercise / Class Metabolic Activity II 4-5 Yardwork/Stairs/Walk up hill Past Family History Family History Mother Alcohol abuse by father Father Alcohol abuse by father Grandmother Diabetes Cardiac disorder Kidney disease Gallbladder disease Past Surgical History Surgical History Hx of arthroscopy of left knee Hx of arthroscopy of right knee Hx of breast lump removal left Hx of wisdom tooth extraction Past Anesthesia History No Hx of Anesthesia Complications and No Family Hx of Anesthesia Complications History of PONV No Hx of PONV and Hx of Motion Sickness Social History Smoking Status: Current every day smoker tobacco type: cigarettes Smoking cigarettes per day: 1-2 PPD x 35 years Do You Dip or Chew Tobacco: No Hx Alcohol Use: No Hx Substance Use: No Review of Systems Patient denies chest pain, shortness of breath, dyspnea on exertion, reflux, cough, wheezing, palpitations. Physical Exam Vital Signs VITALS BP 130/76 P 73 TEMP 98.1 SP02 97%RA RESP 18 PHYSICAL Full neck and c-spine range of motion. Full TMJ range of motion. TMD 3 finger breaths Mallampati Score 2 Dentition: no teeth on upper (full dentures on upper), several missing molars on lower Lungs: clear throughout to auscultation Cardiac: regular rate and rhythm, no murmurs noted Spine: normal Carotid arteries: negative bruit Extremities: no edema Testing Other Testing Carotid doppler: 01/10/19: "Normal study." B/L vertebral arteries. Widely parent b/l ICA. Chest CT: 06/12/18: Stable solid pulmonary nodules measuring up to 4 mm. This is consistent with benignity. No new nodule. No evidence of thoracic aortic aneurysm.
[2019-03-04 09:45] LABS: Basophils # (auto) 0.05 K/uL (0-0.2); Basophils % (auto) 0.7 %; Eosinophils % (auto) 4.5 %; Hematocrit (blood only) 45.9 % (42-52); Hemoglobin 15.3 g/dL (14.0-18.0); Immature Granulocytes # (auto) 0.01 K/uL (0.00-0.02); Immature Granulocytes % (auto) 0.1 %; Lymphocytes # (auto) 1.84 K/uL (1.2-3.4); Lymphocytes % (auto) 27.4 %; Mean Corpuscular Hemoglobin 30.1 pg (25-34); Mean Corpuscular Hgb Conc 33.3 g/dL (32-36); Mean Corpuscular Volume 90.4 fL (80-100); Mean Platelet Volume 10.1 fL (7.4-10.4); Monocytes # (auto) 0.57 K/uL (0.11-0.59); Monocytes % (auto) 8.5 %; Neutrophils # (auto) 3.94 K/uL (1.4-6.5); Neutrophils % (auto) 58.8 %; Platelet Count 188 K/uL (130-400); RDW Coefficient of Variation 14.2 % (11.5-14.5); RDW Standard Deviation 47.2 fL (36.4-46.3); Red Blood Count 5.08 M/uL (4.7-6.1); White Blood Count 6.71 K/uL (4.8-10.8)
[2019-03-04 09:59] LABS: Partial Thromboplastin Ratio 1.1; Partial Thromboplastin Time 31.1 Seconds (21.0-31.0); Prothrombin Time 10.1 Seconds (9.0-12.0)
[2019-03-04 10:52] LABS: BUN Creatinine Ratio 18.6 (10-20); Calcium 9.5 mg/dl (8.5-10.1); Creatinine Clr Calc Pharmacy 91.2 ml/min; Est GFR (African American) 104.5; Est GFR (Non-African American) 90.2; Potassium 4.3 mmol/L (3.5-5.1)
--- NOTE | 2019-03-29 09:33 | History and Physical Report ---
DATE OF ADMISSION: 04/02/2019 CHIEF COMPLAINT: Bilateral knee pain, left side greater than right. 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 He has got a long history of knee problems and had his left knee scoped twice, and the right done once. These were done in the and early 1999s. Over the past 15-20 years, he has just developed increased pain and discomfort in both knees. The left side is a bit worse than the right. He has been through extensive conservative treatment over the years including multiple injections as well as oral medicines. This has become less successful over time. He has trouble doing his work. He would like to have both knees fixed. He has chronic pain. He has a limited walking tolerance. He has nighttime pain. PAST MEDICAL HISTORY: 1. Hypertension. 2. History of smoking 60 pack years. PAST SURGICAL HISTORY: Include: 1. Left knee scope x2 in the . 2. Right knee scope in early . ALLERGIES: None. CURRENT MEDICATIONS: Lisinopril. SOCIAL HISTORY: A 48-year-old male. He is . 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 He does smoke. He has a 65-zccn-mdre history of smoking. FAMILY HISTORY: Noncontributory. REVIEW OF HISTORY: Negative for diabetes, neurologic problems, vascular problems or bleeding disorders. No chest pain or shortness of breath. No history of DVT or PE. PHYSICAL EXAMINATION: GENERAL: Reveals a healthy, pleasant 48-year-old male. He looks to be in good health. HEENT: Benign. NECK: Supple, no lymphadenopathy. LUNGS: Clear to auscultation. HEART: Has a regular rate and rhythm. ABDOMEN: Soft, nontender, nondistended. EXTREMITIES: Grossly neurovascularly intact except as follows: Examination of both knees reveals patient walks with a varus alignment to his knee. Examination of the left knee reveals a varus deformity with tenderness to palpation over the medial joint line. He has got bony hypertrophy medially. He walks with a varus thrust. Small knee effusion. Range of motion 5-125. No instability. No pain with hip motion. Examination of the right knee reveals varus deformity. He has got a varus thrust with weightbearing. Trace knee effusion. Tender with medial joint line. Range of motion 5-125. No instability. No pain with hip motion. X-RAYS: X-rays of both knee reveals advanced bilateral medial compartment DJD. He has got complete loss of medial joint space on both knees. Left-sided little bit worse than right. He has got osteophytes off the medial femoral condyle and medial tibial plateau. He has subchondral sclerosis. ASSESSMENT: A 48-year-old male with a history of bilateral knee scopes in the past with advanced bilateral knee degenerative joint disease. Fairly young gentleman, but advanced disease. He has failed conservative treatment and would like to have both knees replaced. PLAN: We had a long discussion as far as treatment. We talked about doing a single versus bilateral knee replacement. He is adamant about proceeding with both knees. I did talk about the increased risk of thrombosis as well as infection and he would like to proceed. We will plan on doing both knee replacements. The risks and benefits of this procedure were explained to the patient including but not limited to DVT, PE, , infection, neurological injury, vascular injury, bleeding problem, pain, limited range of motion, stiffness, failure to relieve symptoms, incomplete relief of symptoms, need for further surgery in future, fracture, leg length inequality, nerve palsy, etc. The patient understands and desires to proceed. Informed consent was obtained. Likely need nicotine patch in the hospital. He is planning to be discharged home using [facility]. He knows to hold the lisinopril the morning of surgery.
[2019-04-02] MEDS ORDERED: CeleBREX 200 MG CAP PO SCH (06:00)
[2019-04-02] MEDS ORDERED: METOCLOPRAMIDE HCL 10 MG TABLET PO SCH (06:00)
[2019-04-02] MEDS ORDERED: ACETAMINOPHEN 500 MG TAB PO SCH (06:00)
[2019-04-02] MEDS ORDERED: SCOPOLAMINE 1.5 MG TDSY TD SCH (06:00)
[2019-04-02] MEDS ORDERED: BUPIVACAINE LIPOSOME/PF 266 MG, BUPIVACAINE/EPINEPHRINE 50 ML, SODIUM CHLORIDE 0.9% 30 ... INFIL SCH (06:00)
[2019-04-02] MEDS ORDERED: GABAPENTIN 900 MG DOSE PO SCH (06:00)
[2019-04-02] MEDS ORDERED: FAMOTIDINE 20 MG TAB PO SCH (06:00)
[2019-04-02] MEDS ORDERED: LR 60ML/HR IV SCH (06:00)
[2019-04-02] MEDS ORDERED: LR 500ML BOLUS, THEN 15ML/HR IV SCH (06:00)
[2019-04-02] MEDS ORDERED: CEFAZOLIN 2000MG 2,000 MG/15 ML SYR IV SCH (06:00)
[2019-04-02] MEDS ORDERED: ROPIVACAINE 0.5% 5 MG/ML 30 ML VIAL ONE (06:25)
[2019-04-02] MEDS ORDERED: BUPIVACAINE 0.5 % 5 MG/1 ML PF 10ML VIAL ONE (06:25)
[2019-04-02] MEDS ORDERED: MIDAZOLAM HCL 1 MG/ML 2ML VIAL ONE ×2 (06:27→07:07)
[2019-04-02] MEDS ORDERED: fentaNYL citrate 100 MCG/2 ML VIAL ONE (06:27)
[2019-04-02] MEDS ORDERED: PROPOFOL IV EMULSION 10 MG/ML 20 ML VIAL IV ONE ×3 (06:28→07:55)
[2019-04-02] MEDS ORDERED: TRANEXAMIC ACID 1,000 MG **IV Intra-op IV SCH (06:30)
[2019-04-02] MEDS ORDERED: SODIUM CHLORIDE 0.9% PF 50 ML VIAL ONE (06:37)
[2019-04-02] MEDS ORDERED: BUPIVACAINE/EPINEPHRINE 0.25% 1:200,000 30 ML VIAL ONE (06:37)
[2019-04-02] MEDS ORDERED: BACITRACIN INJ 50,000 UNIT VIAL ONE ×2 (06:37→06:54)
[2019-04-02] MEDS ORDERED: BUPIVACAINE LIPOSOME 1.3% 266 MG/20 ML VIAL ONE (06:37)
[2019-04-02] MEDS ORDERED: PHENYLEPHRINE 100MCG/ML 5ML SYR IV PRN (06:41)
[2019-04-02] MEDS ORDERED: ATROPINE SULFATE 0.1 MG/ML 10ML SYR IV PRN (06:41)
[2019-04-02] MEDS ORDERED: KETOROLAC 30 MG/ML VIAL IV PRN (06:41)
[2019-04-02] MEDS ORDERED: ONDANSETRON INJ 2 MG/ML 2 ML VIAL IV PRN (06:41)
[2019-04-02] MEDS ORDERED: ePHEDrine sulfate 50 MG/ML AMP IV PRN (06:41)
[2019-04-02] MEDS ORDERED: HYDROmorphone INJ 1 MG/ML SYRINGE IV PRN (06:41)
--- NOTE | 2019-04-02 06:54 | History & Physical Bridge Note ---
Date of Service April 02, 2019 History & Physical Bridge Note I have examined the patient, reviewed the History & Physical and in the interval since the performance of the History & Physical I have noted the following changes of clinical significance: no changes noted
[2019-04-02] MEDS ORDERED: KETAMINE HCL INJ 50 MG/ML 10 ML VIAL ONE (07:16)
[2019-04-02] MEDS ORDERED: GLYCOPYRROLATE 0.2 MG/ML VIAL ONE (07:19)
[2019-04-02] MEDS ORDERED: ONDANSETRON INJ 2 MG/ML 2 ML VIAL ONE (07:19)
--- NOTE | 2019-04-02 10:15 | Post Operative Brief Note ---
PG Immediate Post Op with CF Date of Surgery April 02, 2019 Pre & Post Diagnosis Operation Date: 04/02/19 07:00 Pre-Op Diagnosis: Bilateral Knee Advanced Degenerative Joint Disease Post-Op Diagnosis: Bilateral Knee Advanced Degenerative Joint Disease I identified the patient and participated in the time-out.: Yes Procedure Operation Date: 04/02/19 07:00 Actual Procedures p Bilateral Total Knee Arthroplasty(Bilateral) - Sj Crump MD Surgeon Sj Crump MD Fisher Quahog Duyen, PAC Estimated Blood Loss 100 Findings Consistent with Post-Op Diagnosis Fluids 1000 cc Specimens Specimen Description: A. Left Knee Bone and Tissue B. Right Knee Bone and Tissue Drains Sinha Catheter (A 16 [place]ese sinha catheter was inserted by ROSE Berg, without difficulty, clear yellow urine obtained, output to be monitored by Anesthesia.) Anesthesia Type Spinal MAC Complications none Disposition Accompanied Patient To Recovery: Yes Disposition: Recovery Room
[2019-04-02] MEDS ORDERED: MEPERIDINE HCL 25 MG/ML CARP ONE (10:28)
--- NOTE | 2019-04-02 10:34 | XRay Report ---
XR knee LT 1 or 2V routine HISTORY: 48 years-old Male Surgical Post Op left knee total joint arthroplasty. History of genital d isease COMPARISON: Bilateral knee radiographs 11/19/2018 TECHNIQUE: 2 views of the left knee FINDINGS: Left knee total joint arthroplasty and patella resurfacing demonstrates satisfactory alignment. Anter ior midline skin yeni are noted along with expected postsurgical soft tissue swelling and deep tis miles air. Surgical drainage catheter is noted. No acute fracture, dislocation or opaque foreign body. IMPRESSION: Satisfactory alignment of the left knee total joint arthroplasty. The above report was generated using voice recognition software. It may contain grammatical, syntax o r spelling errors. Electronically signed by: Chemo Sommer M.D. 04/02/2019 10:32 AM
--- NOTE | 2019-04-02 10:35 | XRay Report ---
XR knee RT 1 or 2V routine HISTORY: 48 years-old Male Surgical Post Op right knee total joint arthroplasty COMPARISON: Bilateral knee radiographs 11/19/2018 TECHNIQUE: 2 views of the right knee FINDINGS: Right knee total joint arthroplasty and patella resurfacing. Satisfactory alignment with anterior mid line skin yeni, expected postsurgical soft tissue swelling and deep tissue air with surgical drain age catheter. No acute fracture, dislocation or opaque foreign body. IMPRESSION: Satisfactory alignment of the total joint arthroplasty. The above report was generated using voice recognition software. It may contain grammatical, syntax o r spelling errors. Electronically signed by: Chemo Sommer M.D. 04/02/2019 10:33 AM
[2019-04-02] MEDS ORDERED: MEPERIDINE HCL 25 MG/ML CARP IV STA (11:00)
--- NOTE | 2019-04-02 11:13 | Anesthesiology Progress Note ---
Date of Service April 02, 2019 Anesthesia Post Procedure Vital Signs Vital Signs: Temp Pulse Pulse Resp BP Pulse Ox 04/02/19 11:10 36.5 C 68 19 120/87 100 04/02/19 11:00 72 15 119/81 100 04/02/19 10:50 58 L 14 129/81 100 04/02/19 10:40 66 20 109/83 100 04/02/19 10:30 75 24 130/68 98 04/02/19 10:20 36.1 C L 74 18 125/71 100 04/02/19 10:11 36.0 C L 76 24 110/79 100 04/02/19 05:32 36.7 C 76 16 145/99 H 99 Transfer of Care Handoff Completed per policy Notes Mental Status: alert / awake / arousable Patient Amnestic to Procedure: Yes Nausea / Vomiting: adequately controlled Pain: adequately controlled Airway Patency, RR, SpO2: stable & adequate BP & HR: stable & adequate Hydration State: stable & adequate Neuraxial Anesthesia: was administered and sensory block is resolving Anesthetic Complications: no major complications apparent
--- NOTE | 2019-04-02 11:16 | Operative Report ---
DATE OF OPERATION: 04/02/2019 SURGEON: Sj Crump MD REPAIR ARMATURE WINDER: ROSE Calabrese PREOPERATIVE DIAGNOSIS: Bilateral knee degenerative joint disease. POSTOPERATIVE DIAGNOSIS: Bilateral knee degenerative joint disease. PROCEDURE PERFORMED: Bilateral cemented posterior stabilized total knee arthroplasty. COMPLICATIONS: None. ESTIMATED BLOOD LOSS: 100 mL. FLUID REPLACEMENT: 1000 mL crystalloid fluid replacement. ANESTHESIA: Spinal anesthesia. SPECIMENS: Bilateral knee sent for pathology. TOURNIQUET TIME: Left side tourniquet time was 58 minutes at 300 mmHg. Right side tourniquet 59 minutes at 300 mmHg. 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 He had a tooth knee scopes on the left side, one on the right. I have been treating him conservatively for the past several years. He had failed this treatment. It is really affecting his quality of life and ability to maintain his occupation. X-rays showed advanced DJD. He elected to proceed with bilateral total knee arthroplasties. OPERATIVE FINDINGS: Operative findings revealed advanced grade 4 [id number] disease in the medial compartment of both knees. He had bony eburnation and sclerosis. He had moderate sized joint effusion with varus deformities to both knees and osteophytes, particularly in the medial side of both knees. OPERATIVE IMPLANTS: Left-sided implants consisted of: 1. A Biomet Vanguard size 72.5 left posterior bifemoral component. 2. A Biomet size 79 tibial tray. 3. A 10 mm posterior stabilized polyethylene insert. 4. A 34 x 8.5 all poly patella. Right-sided implants consisted of: 1. A Biomet Vanguard size 72.5 right posterior stabilized femoral component. 2. Biomet size 79 tibial tray. 3. A 10 mm posterior stabilized polyethylene insert. 4. A 34 x 8.5 all poly patella. OPERATIVE PROCEDURE: The patient was taken to the operating room, identified and placed on the operating table in supine position. All contact areas were appropriately padded. IV antibiotics provided by anesthesia team. Spinal anesthetic had been implemented in the holding area. Parham catheter was placed in sterile fashion. Bilateral thigh high tourniquets were placed. Both lower extremities were then prepped and draped in usual sterile fashion. Attention was first drawn to the left leg. Left leg was elevated and exsanguinated with an Esmarch and tourniquet was placed at 300 mmHg. An anterior approach to the left knee was then performed through a longitudinal incision centered over the patella. Sharp dissection was carried through subcutaneous tissues down to the level of the extensor mechanism. Medial parapatellar arthrotomy incision was made. Significant medial subperiosteal dissection was performed to release the medial side. The fat pad resected from beneath the patellar tendon. The patella was everted and knee was flexed. The osteophytes were taken off the distal femur. The ACL and PCL were then released from distal femur and the tibia subluxated anteriorly. External tibial alignment jig was then placed in the anterior face of the tibia and adjusted 16 mm medially. Proximal tibial cut was made to remove about a millimeter of bone from most deficient aspect of the medial tibial plateau. Some osteophytes were taken off medial and posteromedially. Tibia sized to a size 79. Attention was then drawn to the femur. The distal femur was entered with a sharp drill bit. Intramedullary canal was suctioned. A left 6-degree valgus cutting guide was placed. Distal femoral cutting block was pinned in place. Distal femoral cut was made to take an additional 3 mm of bone off the distal femur. The femur was then sized to a size 72.5. We did downsize this slightly. The AP cutting block was pinned parallel to the epicondylar axis, which was 5 degrees of external rotation. The anterior cut, anterior chamfer, posterior cut, posterior chamfer cuts were made. Box cutting guide was placed and adjusted slightly lateral and the box cut was made. The knee was flexed. The remnants of the medial and lateral menisci were excised. The osteophytes were taken off the posterior aspect of the femur. Trial femoral component was placed. Tibial tray was pinned in maximum external rotation and the drill and stem punch were used to create the defect in proximal tibia for the tibial tray. The knee was then trialed and the 10 mm insert fit most appropriately. Attention was then drawn to patella. The patella was cleaned of all soft tissues. Patella thickness measured 26 mm in thickness, it was cut down to 15. It was sized to a size 34 patella. Lug holes were drilled for 34 patella. Osteophytes removed. Patella button was placed. Knee was taken through range of motion, patella tracked nicely with no thumbs test. Attention was then drawn toward placement of permanent components. All trial components were removed. Bone plug was placed in the distal femur to limit blood loss. A double batch of Palacos G cement was mixed. Biomet Vanguard size 72.5 left posterior bifemoral component, size 79 tibial tray, 10 mm posterior stabilized polyethylene insert, and a 34 x 8.5 all poly patella then cemented in place. Knee was brought out into full extension until cement hardened. A final cement check was then performed. Pericapsular tissues were injected with the mix of Exparel, normal saline and 0.5% Marcaine with epinephrine. We put half of it in this knee and half on the second knee. Final cement check was then performed. The tourniquet was then let down for final tourniquet time of 58 minutes. Hemostasis was assured with use of electrocautery. The patient did receive 1 gram of tranexamic acid. The extensor mechanism was then closed with combination of #1 PDS suture and #1 Vicryl suture in a [id number] fashion. The extensor mechanism was checked and found to be intact and subcutaneous tissue was then closed with #2 Dexon suture in a buried interrupted fashion. Skin was closed with skin yeni. Leg was then cleaned, dried and a sterile dressing of Xeroform, 4 x 4 and sterile cast padding and Rolf bandage were applied. During closing of the subcutaneous tissues and skin of the left knee, a similar procedure was begun on the right knee. The right leg was elevated and exsanguinated with use of an Esmarch and tourniquet was placed at 300 mmHg. An anterior approach of the right knee was then performed through a longitudinal incision centered over the patella. Sharp dissection was carried through subcutaneous tissues down to the level of the extensor mechanism. A medial parapatellar arthrotomy incision was made. Some subperiosteal dissection was carried out medially. The fat pad resected from beneath the patellar tendon. The lateral patellofemoral ligament was released. The patella was everted and knee was flexed. The osteophytes were taken off the distal femur. The ACL and PCL were then released from distal femur and the tibia subluxated anteriorly. External tibial alignment jig was then placed in the anterior face of the tibia and adjusted 16 mm medially. Proximal tibial cut was made to remove about a millimeter or 2 of bone from most deficient aspect of the medial tibial plateau. Some osteophytes were taken off medial and posteromedially. Tibia sized to a size 79. Attention was then drawn to the femur. The distal femur was entered with a sharp drill. Intramedullary canal was suctioned. Right 6 degree valgus cutting guide was placed. Distal femoral cutting block was pinned in place. Distal femoral cut was made to take an additional 3 mm of bone off distal femur. Femur was then sized to a size 72.5. We did downsize this slightly. The AP cutting block was pinned parallel to the epicondylar axis, which was 3 degrees of external rotation. The anterior cut, anterior chamfer cut, posterior cut, posterior chamfer cuts were made. Box cutting guide was placed and adjusted slightly lateral and box cut was made. The knee was flexed. The remnants of medial and lateral menisci were excised. The osteophytes were taken off the posterior aspect of the femur. Trial femoral component was placed. Tibial tray was pinned in maximum external rotation and the drill and stem punch were used to create defect in proximal tibia for the tibial tray. The knee was then trialed and the 10 mm insert fit most appropriately. Attention was then drawn to patella. The patella was cleaned of all soft tissues. Patella thickness measured 26 mm in thickness, it was cut down to 15. It was sized to a size 34 patella. Lug holes were drilled for 34 patella. Lateral osteophyte was removed. Patella button was placed. Knee was taken through range of motion and the patella tracked nicely with no thumbs test. Attention turned toward placement of permanent components. All trial components were removed. Bone plug was placed in the distal femur to limit blood loss. A double batch of Palacos G cement was mixed. Biomet Vanguard size 72.5 right posterior stabilized femoral component, size 79 tibial tray, a 10 mm posterior stabilized polyethylene insert, and a 34 x 8.5 all poly patella then cemented in place. Knee was brought into full extension until cement hardened. A final cement check was then performed. The subcutaneous tissues were then injected with 50 mL of the remaining mixture of Exparel, normal saline and 0.5% Marcaine with epinephrine. The wound was irrigated extensively. The tourniquet was let down for final tourniquet time of 59 minutes. Hemostasis was assured using electrocautery. The extensor mechanism was then closed with combination of #1 PDS suture and #1 Vicryl suture in a eriegn-sf-blarr fashion. Extensor mechanism was checked and found to be intact. Subcutaneous tissue was then closed with #2 Dexon suture in a buried interrupted fashion. Skin was closed with skin yeni. Leg was then cleaned, dried and a sterile dressing of Xeroform, 4 x 4, sterile cast padding and Rolf bandage were applied. We then removed the drapes and some additional soft roll and Rolf bandage were then used to place on the left leg as well. The patient was then transferred to the recovery room in stable condition. The patient tolerated the procedure well with no complications. All needle and sponge counts were correct at the end of the operation. I attest to the content of the Intraoperative Record and any orders documented therein. Any exception s are noted below.
[2019-04-02] MEDS ORDERED: NALOXONE HCL 0.4 MG/1 ML VIAL/CARP IV PRN (11:30)
[2019-04-02] MEDS ORDERED: METOCLOPRAMIDE HCL INJ 5 MG/ML 2 ML VIAL IV PRN (11:30)
[2019-04-02] MEDS ORDERED: ALUMINUM/MAGNESIUM SUSP 30 ML UDC PO PRN (11:30)
[2019-04-02] MEDS ORDERED: MAGNESIUM HYDROXIDE SUSP 30 ML UDC PO PRN (11:30)
[2019-04-02] MEDS ORDERED: BISACODYL 10 MG SUPP PR PRN (11:30)
[2019-04-02] MEDS ORDERED: TAMSULOSIN HCL 0.4 MG CAP PO PRN (11:30)
[2019-04-02] MEDS: SODIUM CHLORIDE 0.9% 1000ML 1,000 ML IV SCH ×3 (12:43→22:40)
[2019-04-02] MEDS: KETOROLAC 30 MG/ML VIAL IV SCH ×3 (12:43→23:02)
[2019-04-02] MEDS: NICOTINE 21 MG/24 HR TDSY TD SCH (12:59)
[2019-04-02] MEDS: ACETAMINOPHEN 500 MG TAB PO SCH ×2 (13:52→22:07)
[2019-04-02] MEDS: CEFAZOLIN 2000MG 2,000 MG/15 ML SYR IV SCH ×2 (13:54→22:08)
[2019-04-02] MEDS: OXYCODONE HCL IR 5 MG TAB (IMMEDIATE RELEASE) PO PRN ×2 (14:38→18:23)
[2019-04-02] MEDS: HYDROmorphone INJ 0.5 MG/0.5 ML SYR IV PRN ×2 (15:43→22:34)
[2019-04-02] MEDS ORDERED: TRANEXAMIC ACID 1,000 MG in 0.9 % SODIUM CHLORIDE 100 ML IV SCH (16:17)
[2019-04-02] MEDS: CHECK SCOPOLAMINE PATCH PLACEMENT SCH ×2 (17:05→23:47)
[2019-04-02] MEDS: ASCORBIC ACID 500 MG TAB PO SCH (17:58)
[2019-04-02] MEDS: FERROUS GLUCONATE 324 MG TAB PO SCH (17:58)
--- NOTE | 2019-04-02 19:24 | Progress Note ---
DATE: 04/02/2019 SUBJECTIVE: A 48-year-old gentleman postop from bilateral knee replacements. He is doing pretty well. Having a decent amount of pain. He has been slow to respond to pain medicine. Denies any chest pain or shortness of breath. Not feeling dizzy or lightheaded. The right leg is bothering more than the left. OBJECTIVE: VITAL SIGNS: Temperature 36.7. Vital signs stable. GENERAL: Healthy, pleasant, middle-aged male. He is sitting up in bed and looks quite comfortable. Does not look in any distress. EXTREMITIES: Examination of both legs revealed legs to be well aligned. Dressings are clean, dry, and intact. He can dorsiflex and plantarflex both feet and all toes appropriately. He has got good brisk refill. Good distal pulse distally. Sensory exam is intact to light touch. X-RAYS: X-rays of both knees from recovery room reviewed. It shows bilateral cemented posterior stabilized total knee arthroplasties. Components looked to be in good position. No signs of problems. ASSESSMENT: 48-year-old gentleman postop from bilateral knee replacements, doing okay. Having a significant amount of pain and we will try and work on getting that under control. He is neurologically intact. PLAN: 1. DVT prophylaxis including thigh-high TEDs, SCDs, and aspirin twice a day. 2. PT/OT. Weight bear as tolerated. Bilateral total knee protocol. 3. Pain control, doing okay with current pain regimen. We are going to treat him with Tylenol round the clock and Toradol. He is getting IV Dilaudid and we likely will change him to p.o. Dilaudid if he is not doing any better on the oxycodone over the next 12 hours. 4. IV antibiotics x24 hours. 5. Disposition: Plan to discharge to home with some home health once adequately recovered.
[2019-04-02] MEDS: HYDROmorphone HCL 2 MG TAB PO PRN ×2 (19:52→21:03)
[2019-04-02] MEDS: SENNA 8.6 MG TAB PO SCH (20:16)
[2019-04-02] MEDS: ASPIRIN 81 MG ECTAB PO SCH (20:16)
[2019-04-02] MEDS: DOCUSATE SODIUM 100 MG CAP PO SCH (20:16)
[2019-04-03] MEDS: HYDROmorphone HCL 2 MG TAB PO PRN ×4 (01:37→16:30)
[2019-04-03] MEDS: KETOROLAC 30 MG/ML VIAL IV SCH ×4 (05:12→23:41)
[2019-04-03] MEDS: ACETAMINOPHEN 500 MG TAB PO SCH ×3 (05:16→22:36)
[2019-04-03 06:11] LABS: Hematocrit (blood only) 25.8 % (42-52); Hemoglobin 8.7 g/dL (14.0-18.0); Mean Corpuscular Hemoglobin 30.3 pg (25-34); Mean Corpuscular Hgb Conc 33.7 g/dL (32-36); Mean Corpuscular Volume 89.9 fL (80-100); Platelet Count 132 K/uL (130-400); RDW Coefficient of Variation 13.6 % (11.5-14.5); RDW Standard Deviation 45.5 fL (36.4-46.3); Red Blood Count 2.87 M/uL (4.7-6.1); White Blood Count 6.96 K/uL (4.8-10.8)
[2019-04-03 06:28] LABS: BUN Creatinine Ratio 11.2 (10-20); Creatinine Clr Calc Pharmacy 85.9 ml/min; Est GFR (African American) 97.3; Est GFR (Non-African American) 83.9; Potassium 4.3 mmol/L (3.5-5.1)
[2019-04-03] MEDS: FERROUS GLUCONATE 324 MG TAB PO SCH ×2 (08:21→17:30)
[2019-04-03] MEDS: ASCORBIC ACID 500 MG TAB PO SCH ×2 (08:21→17:30)
[2019-04-03] MEDS: ASPIRIN 81 MG ECTAB PO SCH ×2 (08:22→22:36)
[2019-04-03] MEDS: LISINOPRIL 20 MG TAB PO SCH (08:22)
[2019-04-03] MEDS: MULTIVITAMIN TAB PO SCH (08:22)
[2019-04-03] MEDS: NICOTINE 21 MG/24 HR TDSY TD SCH (08:23)
[2019-04-03] MEDS: DOCUSATE SODIUM 100 MG CAP PO SCH ×2 (08:24→22:36)
[2019-04-03] MEDS: HYDROmorphone INJ 0.5 MG/0.5 ML SYR IV PRN (09:26)
--- NOTE | 2019-04-03 10:08 | Anesthesiology Progress Note ---
Date of Service April 03, 2019 Anesthesia Post Procedure Vital Signs Vital Signs: Temp Pulse Pulse Resp BP BP Pulse Ox 04/03/19 07:41 36.9 C 71 16 130/70 99 04/03/19 03:10 37.2 C 86 16 114/68 96 04/02/19 23:15 37.1 C 94 H 16 128/72 98 04/02/19 20:50 90 18 136/84 99 04/02/19 19:45 36.8 C 90 18 124/84 97 04/02/19 15:20 36.7 C 80 17 116/77 97 04/02/19 14:40 79 16 137/91 98 04/02/19 13:20 74 16 112/69 99 04/02/19 12:32 79 16 124/75 98 04/02/19 12:09 74 16 145/85 H 99 04/02/19 11:20 36.4 C L 66 18 124/81 99 04/02/19 11:10 36.5 C 68 19 120/87 100 04/02/19 11:00 72 15 119/81 100 04/02/19 10:50 58 L 14 129/81 100 04/02/19 10:40 66 20 109/83 100 04/02/19 10:30 75 24 130/68 98 04/02/19 10:20 36.1 C L 74 18 125/71 100 04/02/19 10:11 36.0 C L 76 24 110/79 100 Pain Intensity Bilateral Knee: Pain Intensity: 11 Notes Mental Status: alert / awake / arousable Patient Amnestic to Procedure: Yes Pain: see Notes below (pt c/o severe pain and difficulty lifting legs off of bed. he is able to move his feet and do pedal push and pull; Nurse was made aware of pain; Dr. Combs was made aware of weakness.) Airway Patency, RR, SpO2: stable & adequate BP & HR: stable & adequate Hydration State: stable & adequate Neuraxial Anesthesia: was administered and sensory block resolved Anesthetic Complications: no major complications apparent
[2019-04-03] MEDS: ONDANSETRON INJ 2 MG/ML 2 ML VIAL IV PRN (11:12)
--- NOTE | 2019-04-03 11:32 | Progress Note ---
DATE: 04/03/2019 SUBJECTIVE: A 48-year-old gentleman postop day 1 from bilateral knee replacement. He is doing pretty well. Pain seems to be a little bit under better control today. The right side bothers him a little bit more than left. No chest pain or shortness of breath. Not feeling dizzy or lightheaded. OBJECTIVE: VITAL SIGNS: Temperature 36.9. Vital signs stable. GENERAL: Shows a pleasant, middle-aged male. He is sitting on bed, looks reasonably comfortable this morning. EXTREMITIES: Examination of both legs revealed the legs to be well aligned. Dressings are clean, dry, and intact. He can dorsiflex and plantarflex both feet appropriately. He has got brisk refill with good distal pulses. He is neurologically intact. LABORATORY DATA: Hemoglobin is 8.7. Hematocrit 25.8. Electrolytes are stable. ASSESSMENT: A 48-year-old gentleman postop day 1 from bilateral knee replacements, doing pretty well. Pain is reasonably well controlled. Seems to be doing a little bit better on the Dilaudid. He is neurologically intact. PLAN: 1. DVT prophylaxis including thigh-high TEDs, SCDs, and aspirin twice a day. 2. PT/OT. Weight bear as tolerated. Bilateral knee protocol. 3. Pain control, doing pretty well with current pain regimen. 4. Anemia. He is anemic, but asymptomatic. Will continue iron supplementation. 5. Disposition: Plan to discharge to home likely with some home health once medically stable and recovered.
[2019-04-03] MEDS: SENNA 8.6 MG TAB PO SCH (22:36)
[2019-04-04] MEDS: KETOROLAC 30 MG/ML VIAL IV SCH (05:21)
[2019-04-04] MEDS: ACETAMINOPHEN 500 MG TAB PO SCH (05:21)
[2019-04-04 05:48] LABS: Basophils # (auto) 0.02 K/uL (0-0.2); Basophils % (auto) 0.2 %; Eosinophils # (auto) 0.22 K/uL (0-0.5); Eosinophils % (auto) 2.3 %; Hematocrit (blood only) 24.4 % (42-52); Hemoglobin 8.2 g/dL (14.0-18.0); Immature Granulocytes # (auto) 0.02 K/uL (0.00-0.02); Immature Granulocytes % (auto) 0.2 %; Lymphocytes # (auto) 1.47 K/uL (1.2-3.4); Lymphocytes % (auto) 15.4 %; Mean Corpuscular Hemoglobin 29.9 pg (25-34); Mean Corpuscular Hgb Conc 33.6 g/dL (32-36); Mean Corpuscular Volume 89.1 fL (80-100); Mean Platelet Volume 9.8 fL (7.4-10.4); Monocytes # (auto) 0.84 K/uL (0.11-0.59); Monocytes % (auto) 8.8 %; Neutrophils # (auto) 6.96 K/uL (1.4-6.5); Neutrophils % (auto) 73.1 %; Platelet Count 134 K/uL (130-400); RDW Coefficient of Variation 13.8 % (11.5-14.5); Red Blood Count 2.74 M/uL (4.7-6.1); White Blood Count 9.53 K/uL (4.8-10.8)
[2019-04-04] MEDS: HYDROmorphone HCL 2 MG TAB PO PRN ×2 (07:33→11:27)
--- NOTE | 2019-04-04 07:42 | Progress Note ---
DATE: 04/04/2019 SUBJECTIVE: A 48-year-old gentleman postop day 2 from bilateral knee replacements. He is doing okay. The right leg has been more painful than the left. Denies any chest pain or shortness of breath. Not feeling dizzy or lightheaded. OBJECTIVE: VITAL SIGNS: Temperature 37.3. Vital signs stable. GENERAL: Shows a pleasant, middle-aged male. He is sitting up in bed, looks reasonably comfortable. EXTREMITIES: Examination of both legs reveals the dressing to be clean, dry, and intact. He does have little bit more swelling on the right leg and the left. He apparently has got some blisters around the incision sites. The wounds otherwise well approximated. He can dorsiflex and plantarflex both feet appropriately. No signs of compartment issues. LABORATORY DATA: Hemoglobin 8.2. Hematocrit 24.4. ASSESSMENT: A 48-year-old gentleman postop day 2 from bilateral knee replacements, doing reasonably well. Having a little bit more pain in the right than the left. Nothing out of the ordinary. He does have a very thin soft tissue envelope and quite a bit of swelling on the right side more than the left. There was some fracture blisters. He is neurologically intact. There are no signs of compartment issues or compartment syndrome. PLAN: 1. DVT prophylaxis including thigh-high TEDs, SCDs, and aspirin twice a day. 2. PT/OT. He can weightbear as tolerated. 3. Pain control. We will continue him on around the clock Tylenol and he can use NSAIDs as well as Dilaudid. 4. Disposition: Plan to discharge to home with some home health if his pain is controlled.
[2019-04-04] MEDS: ONDANSETRON INJ 2 MG/ML 2 ML VIAL IV PRN (09:03)
[2019-04-04] MEDS: ASCORBIC ACID 500 MG TAB PO SCH (09:04)
[2019-04-04] MEDS: ASPIRIN 81 MG ECTAB PO SCH (09:04)
[2019-04-04] MEDS: MULTIVITAMIN TAB PO SCH (09:04)
[2019-04-04] MEDS: FERROUS GLUCONATE 324 MG TAB PO SCH (09:04)
[2019-04-04] MEDS: LISINOPRIL 20 MG TAB PO SCH (09:05)
[2019-04-04] MEDS: NICOTINE 21 MG/24 HR TDSY TD SCH (09:08)
[2019-04-04] MEDS: DOCUSATE SODIUM 100 MG CAP PO SCH (09:09)
--- NOTE | 2019-04-08 16:01 | Discharge Summary ---
ADMITTING PHYSICIAN AND SURGEON: Dr. Sj Crump. ADMITTING DIAGNOSIS: Bilateral knee degenerative joint disease. SURGERY PERFORMED: Bilateral total knee arthroplasty. SECONDARY DIAGNOSES: Hypertension, history of smoking. CONSULTS: None obtained. HISTORY AND PHYSICAL EXAMINATION: Well documented in the patient's chart. HOSPITAL COURSE: The patient was admitted on 04/02/2019 underwent bilateral total knee replacements. Tolerated the procedure well; there were no complications. He was transferred to the PACU postoperatively and later to the orthopedic floor for further care. He was given Ancef for antibiotic prophylaxis, ANALILIA stockings, SCDs and aspirin for DVT prophylaxis. Hemoglobin, hematocrit and vital signs were monitored during his hospital stay and remained stable. He did develop some postoperative anemia with a hemoglobin down to 7.2. He did not require any blood transfusions. There were no complications. On postoperative day 2, he was tolerating a regular diet, pain was reasonably controlled with oral pain medicine. He was participating in physical therapy. Postop day 2, he was discharged home, set up with home health services, given printed discharge instructions including new prescriptions for aspirin, iron supplement. Continue his home medicines. Continue physical therapy, weightbearing as tolerated, ANALILIA stockings. Follow up approximately 2 weeks postop or sooner if there are any problems or concerns.
== END 2019-04-04 12:16 | disposition home health service (06) | DRG 462 ==
LOC: ASU 04:54 → 3E 10:23

== ENCOUNTER 2019-04-04 18:56 | Inpatient (IN) ==
[2019-04-04] MEDS ORDERED: SODIUM CHLORIDE 0.9% 1000ML 1,000 ML IV SCH (19:15)
[2019-04-04 19:23] LABS: Basophils # (auto) 0.04 K/uL (0-0.2); Basophils % (auto) 0.3 %; Eosinophils # (auto) 0.33 K/uL (0-0.5); Eosinophils % (auto) 2.6 %; Hematocrit (blood only) 24.2 % (42-52); Hemoglobin 8.2 g/dL (14.0-18.0); Immature Granulocytes # (auto) 0.04 K/uL (0.00-0.02); Immature Granulocytes % (auto) 0.3 %; Lymphocytes # (auto) 2.04 K/uL (1.2-3.4); Lymphocytes % (auto) 15.9 %; Mean Corpuscular Hemoglobin 30.1 pg (25-34); Mean Corpuscular Hgb Conc 33.9 g/dL (32-36); Mean Platelet Volume 9.8 fL (7.4-10.4); Monocytes # (auto) 1.07 K/uL (0.11-0.59); Monocytes % (auto) 8.3 %; Neutrophils # (auto) 9.33 K/uL (1.4-6.5); Neutrophils % (auto) 72.6 %; Platelet Count 161 K/uL (130-400); RDW Coefficient of Variation 13.7 % (11.5-14.5); RDW Standard Deviation 44.6 fL (36.4-46.3); Red Blood Count 2.72 M/uL (4.7-6.1); White Blood Count 12.85 K/uL (4.8-10.8)
[2019-04-04 19:31] LABS: iSTAT Hemoglobin 6.8 g/dl (14.0-18.0); iSTAT Ionized Calcium 1.15 mmol/l (1.12-1.32); iSTAT Potassium 3.9 mEq/L (3.3-5.0)
[2019-04-04 19:33] LABS: Partial Thromboplastin Ratio 1.2; Partial Thromboplastin Time 31.6 Seconds (21.0-31.0); Prothrombin Time 10.4 Seconds (9.0-12.0)
[2019-04-04] MEDS ORDERED: OPTIRAY 320 125ml IV PRN (19:37)
[2019-04-04 19:40] LABS: Alanine Aminotransferase 17 U/L (12-78); Aspartate Aminotransferase 22 U/L (15-37); BUN Creatinine Ratio 10.7 (10-20); Blood Urea Nitrogen 13 mg/dl (7-18); Calcium 8.4 mg/dl (8.5-10.1); Carbon Dioxide 29 mmol/L (21-32); Chloride 103 mmol/L (98-107); Creatinine Clr Calc Pharmacy 78.2 ml/min; Est GFR (African American) 83.5; Glucose 113 mg/dl (70-99); Lipase 53 U/L (73-393); Magnesium 2.2 mg/dl (1.8-2.4); Potassium 3.9 mmol/L (3.5-5.1); Sodium 137 mmol/L (136-145)
[2019-04-04 19:51] LABS: Albumin Globulin Ratio 0.9 (0.9-2); Alkaline Phosphatase 78 U/L (45-117); Bilirubin,Total 0.4 mg/dl (0.2-1); Creatine Kinase 258 U/L (39-308); Creatine Kinase MB < 1.0 ng/ml (0.5-3.6); Globulin 3.4 gm/dl (2.5-4.0); Total Protein 6.4 gm/dl (6.4-8.2); Troponin I < 0.015 ng/ml (0-0.045)
--- NOTE | 2019-04-04 20:02 | CT Scan Report ---
HEAD CT NONCONTRAST CT DOSE: HISTORY: syncope TECHNIQUE: Multiaxial CT images of the head were performed without the use of intravenous contrast. A utomated exposure control was utilized for this study. A dose lowering technique was utilized adheri ng to the principles of ALARA. Comparison: None. Findings: Mild mucosal thickening within the paranasal sinuses. The mastoid air cells are clear. The calvarium and skull base are intact. The ventricles and sulci are within normal limits. There is no m ass, hematoma, midline shift, or acute infarct. Impression: No acute intracranial abnormality. Electronically signed by: Rodrigue Walker M.D. 04/04/2019 8:01 PM
--- NOTE | 2019-04-04 20:12 | CT Scan Report ---
CHEST CTA for PULMONARY ARTERIES CT DOSE: 1655.53 mGy.cm HISTORY: Syncope. TECHNIQUE: Multiaxial CT images of the chest were performed following the intravenous administration of contrast to evaluate the pulmonary arteries. Maximal intensity projection images were also obtaine d. A dose lowering technique was utilized adhering to the principles of ALARA. COMPARISON STUDY: Chest CTA 06/26/2017. FINDINGS: Normal caliber thoracic aorta with no evidence for dissection. The heart is normal in size. No pleural or pericardial effusions. No definite filling defects within the pulmonary arteries to lozoya ggest pulmonary embolus. Mild respiratory motion artifact. Normal esophagus. No mediastinal or hilar lymphadenopathy. Limited views of the upper abdomen demonstrate a normal liver and spleen. The adrena l glands are unremarkable. Mild thickening at the gastric antrum. This is likely incidental and may r epresent a gastritis. Recommend correlation with nonemergent endoscopy for further evaluation. No jaylan picious lytic are blastic osseous lesions. The central airways are patent. No pneumothorax. Stable 5 mm triangular-shaped nodule within the left upper lobe on image 206. Stable 4 mm nodule within the le ft upper lobe on image 247. No new pulmonary nodules. These are likely benign given the long-term sta bility. No focal lung consolidations to suggest pneumonia. Groundglass densities within the lungs pos teriorly favor mild dependent change. IMPRESSION: 1. No evidence for pulmonary embolus. 2. Stable subcentimeter pulmonary nodule within the left upper lobe. These are likely benign given th e long-term stability. 3. Mild thickening at the gastric antrum. This is likely incidental and may represent a gastritis. Re commend follow-up with nonemergent endoscopy for further evaluation. Electronically signed by: Rodrigue Walker M.D. 04/04/2019 8:10 PM
[2019-04-04 20:34] LABS: Appearance Urine Clear (Clear); Bilirubin Urine Negative (Negative); Blood Urine Negative (Negative); Color Urine Yellow; Glucose Urine UA Negative (Negative); Ketones Urine Negative (Negative); Leukocyte Esterase Urine Negative (Negative); Nitrite Urine Negative (Negative); Protein Urine Negative (Negative); Specific Gravity Urine > 1.045 (1.000-1.030); Urobilinogen Urine Negative (Negative)
--- NOTE | 2019-04-04 21:16 | Emergency Department Note ---
Entered by Kirstie Quiñones acting as a scribe for Porter Harman DO History of Present Illness General Chief complaint: Syncope (Near Syncope) Source: patient History of Present Illness Onset (ago): hour(s) less than 1 Location: head Pain Consistency: + now resolved Quality: + other (episode) Relieved By: + none Associated symptoms: + denies other symptoms (denies abdominal pain, denies rectal bleeding), + diaphoresis, + syncope and + other (dizziness, some numbness); no chest pain, no cough, no fever/chills and no shortness of breath Treatments prior to arrival: aspirin The patient is a 48 year old male who presents to the Emergency Room with complaints of syncope that occurred less than an hour ago. The patient reports he had bilateral knee surgery done by Dr. Crump on Monday at [facility]. He was sent home today, which is when he had his syncope episode. His reports that her was passed out for about 10 minutes. The patient was seated and talking prior to the episode, and then suddenly lost consciousness. His noted that he was profusely sweating during this time. He also complains of intermittent right sided numbness, as well as dizziness. He reports smoking 2 packs of cigarettes a day. He has a history of high blood pressure, and has been taking his medications regularly. The patient denies shortness of breath, chest pain, rectal bleeding, fever, cough, abdominal pain. He has been taking aspirin. He notes that he feels better since the episode. Home Medications Home Medications Medication Instructions Recorded Confirmed Type lisinopril 20 mg tablet 20 mg PO QAM #90 tab 03/25/19 04/04/19 Rx aspirin [Ecotrin Low Strength] 81 mg PO BID 45 Days #90 tab 04/03/19 04/04/19 Rx ferrous gluconate 324 mg PO BIDM 30 Days #60 tab 04/03/19 04/04/19 Rx acetaminophen [Tylenol Extra 1,000 mg PO Q8H 04/04/19 04/04/19 History Strength] hydromorphone 2 - 4 mg PO Q6H PRN 04/04/19 04/04/19 History Allergies Allergy/AdvReac Type Severity Reaction Status Date / Time No Known Allergies Allergy Verified 04/02/19 05:21 Past Med/Surg History Medical History Acid reflux hx Dyslipidemia per records Hypertension Nodule of left lung [place]-Schlatter's disease left knee Osteoarthritis Thoracic aortic aneurysm incidental finding on 05/[address] with no evidence of aneurysm on f/u chest CT 05/2018*- PCP monitoring Surgical History Hx of arthroscopy of left knee Hx of arthroscopy of right knee Hx of breast lump removal left Hx of wisdom tooth extraction Family History Mother Alcohol abuse by father Father Alcohol abuse by father Grandmother Diabetes Cardiac disorder Kidney disease Gallbladder disease Social History Preferred Language: [place] Communication Ability: Effective Visual Impairment: No Limitations Hearing Ability: Normal Aircraft Communicator Required: No Beliefs That Will Affect Care: None marital status: Current Living Situation: Spouse current occupational status: employed current occupation: [employer] Other Information That Helps Us Care for You: No Feels Safe at Home: Yes Safety Concerns: Feels Safe At This Time Smoking Status: Current every day smoker Tobacco Type: cigarettes ; packs per day: 1.5 ; Cigarettes Per Day: 1-2 Packs ; Do You Dip or Chew Tobacco: No ; Second Hand Exposure: No ; Hx Alcohol Use: No Hx Substance Use: No Dental Care, Regularly: Yes Physical Activity Frequency: Daily Review of Systems See HPI for pertinent positives & negatives. and A total of 10 systems reviewed and were otherwise negative Physical Exam Vital Signs Vital Signs - 24 hr 04/04/19 19:10 04/04/19 19:27 04/04/19 20:00 Temperature 37.0 C Temperature Source Oral Pulse Rate 98 H 95 H Pulse Rate from SpO2 Sensor 95 H Respiratory Rate 19 15 Respiratory Effort / Characteristics Non-Labored Respiratory Depth Normal Respiratory Pattern Regular Blood Pressure 127/62 120/66 Blood Pressure Mean 83 85 Pulse Oximetry 100 100 98 Oxygen Delivery Method Room Air Room Air Room Air Sepsis Recent Fever Within 48 Hours No Sepsis Action Taken by Nursing No Action Required 04/04/19 20:01 04/04/19 20:30 04/04/19 21:00 Temperature Temperature Source Pulse Rate 93 H 99 H 99 H Pulse Rate from SpO2 Sensor 94 H Respiratory Rate 13 15 15 Respiratory Effort / Characteristics Respiratory Depth Respiratory Pattern Blood Pressure 125/69 127/74 Blood Pressure Mean 82 89 Pulse Oximetry 98 Oxygen Delivery Method Sepsis Recent Fever Within 48 Hours Sepsis Action Taken by Nursing GENERAL: Patient is awake alert in no acute distress patient is resting comfortably and showing no signs of anxiety EYES: The conjunctivae are clear. The pupils are round and reactive. EARS, NOSE, MOUTH AND THROAT: The nose is without any evidence of any deformity. Mucous membranes are moist tongue is midline NECK: The neck is nontender and supple. RESPIRATORY: Normal respiratory effort is noted there is no evidence of wheezing rhonchi or rales CARDIOVASCULAR: Regular rate and rhythm noted there no murmurs rubs or gallops normal S1 normal S2 GASTROINTESTINAL: The abdomen is mildly distended but soft. There is no tenderness guarding rigidity. MUSCULOSKELETAL/EXTREMITIES: Postoperative knee replacements are noted. No significant swelling or bleeding is noted. SKIN: There is no obvious evidence of any rash. Pedal edema was noted bilaterally. NEUROLOGIC: Patient is awake alert and oriented x3. Strength is symmetric. Course Course The patient received 6 of Morphine for his pain upon arrival to the ED. 1906: Past medical records reviewed. The patient was evaluated in room C01B. A complete history and physical exam was performed. 2048: I spoke to Dr. Crum, [facility] hospitalist, regarding the patient. He agreed to take over care of the patient. The patient verbally expressed under standing and agreement of the treatment plan. The patient will be evaluated for further treatment. Administered Medications Aspirin (Ecotrin Ectab) 81 mg PO BID [facility] Stop: 05/04/19 22:20 Last Admin: 04/05/19 00:31 Dose: 81 mg Documented by: [id number] Famotidine (Pepcid) 20 mg PO BID [facility] Stop: 05/04/19 23:14 Last Admin: 04/05/19 00:30 Dose: 20 mg Documented by: [id number] Hydromorphone HCl (Dilaudid) 2 mg PO Q4H PRN PRN Reason: Moderate Pain Stop: 04/18/19 22:20 Last Admin: 04/04/19 22:45 Dose: 2 mg Documented by: [id number] Ioversol (Optiray 320 125ml) 118 ml IV ONCE PRN PRN Reason: Interaction Checking Stop: 04/08/19 19:36 Last Admin: 04/04/19 19:38 Dose: 118 ml Documented by: [id number] Morphine Sulfate (Morphine Sulfate) 4 mg IV Q3H PRN PRN Reason: Severe Pain Stop: 04/18/19 22:20 Last Admin: 04/05/19 00:32 Dose: 4 mg Documented by: [id number] Discontinued Medications Sodium Chloride (Nss 1000ml) 1,000 mls @ 999 mls/hr IV .Q1H1M DAMIEN Stop: 04/04/19 20:15 Last Infusion: 04/04/19 20:24 Dose: 0 mls/hr Documented by: [id number] Admin: 04/04/19 19:23 Dose: 999 mls/hr Documented by: [id number] Medical Decision Making Differential Diagnosis Differential diagnosis includes: vasovagal event, infection, hypoglycemia, electrolyte abnormalities, cardiac sources, intracerebral event, toxicologic, neurologic, as well as others were entertained. Medical Records Attestation: I reviewed the patient's medical records. Home Medications Current Medication List: was personally reviewed by me Laboratory Data Attestation: I reviewed the patient's lab results. Result diagrams: 04/04/19 18:31 04/04/19 18:31 Lab Results 04/04/19 04/04/19 04/04/19 Range/Units 18:31 18:31 18:31 WBC 12.85 H (4.8-10.8) K/uL RBC 2.72 L (4.7-6.1) M/uL Hgb 8.2 L (14.0-18.0) g/dL POC Hgb (14.0-18.0) g/dl Hct 24.2 L (42-52) % POC Hct (42-52) % MCV 89.0 (80-100) fL MCH 30.1 (25-34) pg MCHC 33.9 (32-36) g/dL RDW Std Deviation 44.6 (36.4-46.3) fL RDW Coeff of Yannick 13.7 (11.5-14.5) % Plt Count 161 (130-400) K/uL MPV 9.8 (7.4-10.4) fL Immature Gran % (Auto) 0.3 % Neut % (Auto) 72.6 % Lymph % (Auto) 15.9 % Sanders % (Auto) 8.3 % Eos % (Auto) 2.6 % Baso % (Auto) 0.3 % Immature Gran # (Auto) 0.04 H (0.00-0.02) K/uL Neut # (Auto) 9.33 H (1.4-6.5) K/uL Lymph # (Auto) 2.04 (1.2-3.4) K/uL Sanders # (Auto) 1.07 H (0.11-0.59) K/uL Eos # (Auto) 0.33 (0-0.5) K/uL Baso # (Auto) 0.04 (0-0.2) K/uL PT 10.4 (9.0-12.0) Seconds INR 1.0 (0.9-1.1) APTT 31.6 H (21.0-31.0) Seconds PTT Ratio 1.2 POC Sodium (135-144) mEq/L Sodium 137 (136-145) mmol/L POC Potassium (3.3-5.0) mEq/L Potassium 3.9 (3.5-5.1) mmol/L POC Chloride (101-112) mEq/L Chloride 103 (98-107) mmol/L Carbon Dioxide 29 (21-32) mmol/L POC Total CO2 (24-31) mEq/l Anion Gap 5.0 (3-11) POC Anion Gap (16-25) mmol/L POC BUN (7-18) mg/dl BUN 13 (7-18) mg/dl Creatinine 1.18 (0.6-1.4) mg/dl POC Creatinine (0.6-1.3) mg/dl Est Cr Clr Drug Dosing 78.2 ml/min Est GFR ( Amer) 83.5 Est GFR (Non-Af Amer) 72.0 BUN/Creatinine Ratio 10.7 (10-20) Glucose 113 H (70-99) mg/dl POC Glucose (other) (70-99) mg/dl Calcium 8.4 L (8.5-10.1) mg/dl POC Ioniz Calcium Nereyda (1.12-1.32) mmol/l Magnesium 2.2 (1.8-2.4) mg/dl Total Bilirubin 0.4 (0.2-1) mg/dl AST 22 (15-37) U/L ALT 17 (12-78) U/L Alkaline Phosphatase 78 (45-117) U/L Total Creatine Kinase 258 (39-308) U/L CK-MB (CK-2) < 1.0 (0.5-3.6) ng/ml CK/CKMB % Calc TNP Troponin I < 0.015 (0-0.045) ng/ml Total Protein 6.4 (6.4-8.2) gm/dl Albumin 3.0 L (3.4-5.0) gm/dl Globulin 3.4 (2.5-4.0) gm/dl Albumin/Globulin Ratio 0.9 (0.9-2) Lipase 53 L (73-393) U/L TSH 1.330 (0.300-4.500) uIu/ml Urine Color Urine Appearance (Clear) Urine pH (4.5-7.5) Ur Specific [place] (1.000-1.030) Urine Protein (Negative) Urine Glucose (UA) (Negative) Urine Ketones (Negative) Urine Blood (Negative) Urine Nitrite (Negative) Urine Bilirubin (Negative) Urine Urobilinogen (Negative) Ur Leukocyte Esterase (Negative) 04/04/19 04/04/19 Range/Units 19:19 20:18 WBC (4.8-10.8) K/uL RBC (4.7-6.1) M/uL Hgb (14.0-18.0) g/dL POC Hgb 6.8 L* (14.0-18.0) g/dl Hct (42-52) % POC Hct 20 L* (42-52) % MCV (80-100) fL MCH (25-34) pg MCHC (32-36) g/dL RDW Std Deviation (36.4-46.3) fL RDW Coeff of Yannick (11.5-14.5) % Plt Count (130-400) K/uL MPV (7.4-10.4) fL Immature Gran % (Auto) % Neut % (Auto) % Lymph % (Auto) % Sanders % (Auto) % Eos % (Auto) % Baso % (Auto) % Immature Gran # (Auto) (0.00-0.02) K/uL Neut # (Auto) (1.4-6.5) K/uL Lymph # (Auto) (1.2-3.4) K/uL Sanders # (Auto) (0.11-0.59) K/uL Eos # (Auto) (0-0.5) K/uL Baso # (Auto) (0-0.2) K/uL PT (9.0-12.0) Seconds INR (0.9-1.1) APTT (21.0-31.0) Seconds PTT Ratio POC Sodium 136 (135-144) mEq/L Sodium (136-145) mmol/L POC Potassium 3.9 (3.3-5.0) mEq/L Potassium (3.5-5.1) mmol/L POC Chloride 98 L (101-112) mEq/L Chloride (98-107) mmol/L Carbon Dioxide (21-32) mmol/L POC Total CO2 26 (24-31) mEq/l Anion Gap (3-11) POC Anion Gap 16.0 (16-25) mmol/L POC BUN 12 (7-18) mg/dl BUN (7-18) mg/dl Creatinine (0.6-1.4) mg/dl POC Creatinine 1.0 (0.6-1.3) mg/dl Est Cr Clr Drug Dosing ml/min Est GFR ( Amer) Est GFR (Non-Af Amer) BUN/Creatinine Ratio (10-20) Glucose (70-99) mg/dl POC Glucose (other) 111 H (70-99) mg/dl Calcium (8.5-10.1) mg/dl POC Ioniz Calcium Nereyda 1.15 (1.12-1.32) mmol/l Magnesium (1.8-2.4) mg/dl Total Bilirubin (0.2-1) mg/dl AST (15-37) U/L ALT (12-78) U/L Alkaline Phosphatase (45-117) U/L Total Creatine Kinase (39-308) U/L CK-MB (CK-2) (0.5-3.6) ng/ml CK/CKMB % Calc Troponin I (0-0.045) ng/ml Total Protein (6.4-8.2) gm/dl Albumin (3.4-5.0) gm/dl Globulin (2.5-4.0) gm/dl Albumin/Globulin Ratio (0.9-2) Lipase (73-393) U/L TSH (0.300-4.500) uIu/ml Urine Color Yellow Urine Appearance Clear (Clear) Urine pH 7.0 (4.5-7.5) Ur Specific [place] > 1.045 H (1.000-1.030) Urine Protein Negative (Negative) Urine Glucose (UA) Negative (Negative) Urine Ketones Negative (Negative) Urine Blood Negative (Negative) Urine Nitrite Negative (Negative) Urine Bilirubin Negative (Negative) Urine Urobilinogen Negative (Negative) Ur Leukocyte Esterase Negative (Negative) Imaging Data Radiologist's Impression: Radiology results as stated below per my review and the radiologist's interpretation: HEAD CT NONCONTRAST CT DOSE: HISTORY: syncope TECHNIQUE: Multiaxial CT images of the head were performed without the use of intravenous contrast. Automated exposure control was utilized for this study. A dose lowering technique was utilized adhering to the principles of ALARA. Comparison: None. Findings: Mild mucosal thickening within the paranasal sinuses. The mastoid air cells are clear. The calvarium and skull base are intact. The ventricles and sulci are within normal limits. There is no mass, hematoma, midline shift, or acute infarct. Impression: No acute intracranial abnormality. Electronically signed by: Rodrigue Walker M.D. 04/04/2019 8:01 PM CHEST CTA for PULMONARY ARTERIES CT DOSE: 1655.53 mGy.cm HISTORY: Syncope. TECHNIQUE: Multiaxial CT images of the chest were performed following the intravenous administration of contrast to evaluate the pulmonary arteries. Maximal intensity projection images were also obtained. A dose lowering technique was utilized adhering to the principles of ALARA. COMPARISON STUDY: Chest CTA 06/26/2017. FINDINGS: Normal caliber thoracic aorta with no evidence for dissection. The heart is normal in size. No pleural or pericardial effusions. No definite filling defects within the pulmonary arteries to suggest pulmonary embolus. Mild respiratory motion artifact. Normal esophagus. No mediastinal or hilar lymphadenopathy. Limited views of the upper abdomen demonstrate a normal liver and spleen. The adrenal glands are unremarkable. Mild thickening at the gastric antrum. This is likely incidental and may represent a gastritis. Recommend correlation with nonemergent endoscopy for further evaluation. No suspicious lytic are blastic osseous lesions. The central airways are patent. No pneumothorax. Stable 5 mm triangular-shaped nodule within the left upper lobe on image 206. Stable 4 mm nodule within the left upper lobe on image 247. No new pulmonary nodules. These are likely benign given the long-term stability. No focal lung consolidations to suggest pneumonia. Groundglass densities within the lungs posteriorly favor mild dependent change. IMPRESSION: 1. No evidence for pulmonary embolus. 2. Stable subcentimeter pulmonary nodule within the left upper lobe. These are likely benign given the long-term stability. 3. Mild thickening at the gastric antrum. This is likely incidental and may represent a gastritis. Recommend follow-up with nonemergent endoscopy for further evaluation. Electronically signed by: Rodrigue Walker M.D. 04/04/2019 8:10 PM ECG Data Attestation: I personally reviewed and interpreted this ECG as follows: Indication: + syncope Rate (beats per minute): [address] segments: + Normal ST segments ECG Findings: no PACs and no PVCs Comparison ECG Date: from (03/04/2019) Change: no significant change Blood Pressure Blood Pressure Findings: Normal blood pressure Blood Pressure Disposition: did not require urgent referral MDM Narrative The patient is a 48-year-old male who presented to the emergency department for an evaluation of syncope. The patient was recently discharged from our facility. He had a recent procedure for bilateral knee replacement. The patient was discharged home and had a witnessed syncopal episode by his significant other. The patient was treated with IV fluids in the emergency dep artment. He was reevaluated multiple times. I discussed his case with the on- call [facility] hospitalist group. They have agreed to evaluate the patient in the emergency department for further management disposition. The patient was found to have significant anemia but reviewing his previous laboratory results this does appear to be stable since he was postop. I was concerned given his past medical history that a CT of the chest may be indicated for further work- up. Patient was feeling much better on subsequent reevaluation. Impression & Plan Syncope, Anemia Discharge Plan Visit Data *Final* Discharge Date/Time: 04/04/19 21:59 Chief Complaint: Syncope (Near Syncope) ED Provider: Porter Harman Discharge Problem: Syncope, Anemia Patient Disposition: Admitted As Inpatient Discharge Instructions Interventions: ED Discharge Assessment Last Done: 04/04/19 21:59 Discharge Problem: Syncope Qualifiers: Syncope type: unspecified Qualified Code(s): R55 - Syncope and collapse Anemia Qualifiers: Anemia type: unspecified type Qualified Code(s): D64.9 - Anemia, unspecified The scribe's documentation has been prepared under my direction and personally reviewed by me in its entirety. I confirm that the note above accurately reflects all work, treatment, procedures, and medical decision making performed by me.
[2019-04-04] MEDS ORDERED: ACETAMINOPHEN 325 MG TAB PO PRN (22:21)
[2019-04-04] MEDS ORDERED: POLYETHYLENE (MIRALAX) 17 GM PACK PO PRN (22:21)
[2019-04-04] MEDS ORDERED: MAGNESIUM HYDROXIDE SUSP 30 ML UDC PO PRN (22:21)
[2019-04-04] MEDS ORDERED: ALUMINUM/MAGNESIUM SUSP 30 ML UDC PO PRN (22:21)
[2019-04-04] MEDS ORDERED: ONDANSETRON INJ 2 MG/ML 2 ML VIAL IV PRN (22:21)
--- NOTE | 2019-04-04 22:30 | History & Physical Report ---
Date of Service April 04, 2019 Assessment & Plan (1) Syncope: Syncope status post bilateral total knee arthroplasty- Likely combination of pain and postoperative anemia. Patient is improved after IV fluid rehydration in the ED. We will suggest the patient be discharged to rehab facility where pain can be better managed, and support would be more intensive there. Present on Admission?: Yes (2) Anemia: Hemoglobin was 8.2 upon discharge, and remains the same at this time. No transfusion at this time. Follow serial laboratories. Present on Admission?: Yes (3) HTN (hypertension): Hold lisinopril. Present on Admission?: Yes (4) Gastritis: Noted on CT angiography of chest. We will place on famotidine 20 mg p.o. every 12 hours. Patient does not have symptoms, and unless loss of hemoglobin is progressive and/or Hemoccult is positive, could be dealt with in the outpatient setting. Heme test stools Present on Admission?: Yes History of Present Illness Chief Complaint: The patient presents to the emergency department after syncopal episode that occurred about 1 hour prior to arrival. Primary Care Provider: Olga Maciel DO The patient is a 48-year-old male who is status post bilateral total knee arthroplasty, admitted here on 04/02 and discharged earlier today on 04/04. The patient was at home, involved in a conversation, and then suddenly lost consciousness for about 10 minutes. His did notice profuse sweating prior to this episode, and he primarily complained of dizziness. He did also note that the severity of pain postoperatively was more significant than he thought it would be. His is concerned that he would have a similar problem if discharged to home again, and she feels that he would be better off in a rehab setting. Allergies Allergy/AdvReac Type Severity Reaction Status Date / Time No Known Allergies Allergy Verified 04/02/19 05:21 Home Medications Home Medications Medication Instructions Recorded Confirmed Type lisinopril 20 mg tablet 20 mg PO QAM #90 tab 03/25/19 04/04/19 Rx aspirin [Ecotrin Low Strength] 81 mg PO BID 45 Days #90 tab 04/03/19 04/04/19 Rx ferrous gluconate 324 mg PO BIDM 30 Days #60 tab 04/03/19 04/04/19 Rx acetaminophen [Tylenol Extra 1,000 mg PO Q8H 04/04/19 04/04/19 History Strength] hydromorphone 2 - 4 mg PO Q6H PRN 04/04/19 04/04/19 History Past Med/Surg History Medical History Acid reflux hx Dyslipidemia per records Hypertension Nodule of left lung Preet-Schlatter's disease left knee Osteoarthritis Thoracic aortic aneurysm incidental finding on 05/[address] with no evidence of aneurysm on f/u chest CT 05/2018*- PCP monitoring Surgical History Hx of arthroscopy of left knee Hx of arthroscopy of right knee Hx of breast lump removal left Hx of wisdom tooth extraction Family History Mother Alcohol abuse by father Father Alcohol abuse by father Grandmother Diabetes Cardiac disorder Kidney disease Gallbladder disease Social History Preferred Language: Belarusian Communication Ability: Effective Visual Impairment: No Limitations Hearing Ability: Normal Cargo Handler Required: No Beliefs That Will Affect Care: None marital status: Current Living Situation: Spouse current occupational status: employed current occupation: [employer] Other Information That Helps Us Care for You: No Feels Safe at Home: Yes Safety Concerns: Feels Safe At This Time Smoking Status: Current every day smoker Tobacco Type: cigarettes ; packs per day: 1.5 ; Cigarettes Per Day: 1-2 Packs ; Do You Dip or Chew Tobacco: No ; Second Hand Exposure: No ; Hx Alcohol Use: No Hx Substance Use: No Dental Care, Regularly: Yes Physical Activity Frequency: Daily Review of Systems Review of Systems: The patient denies chest pain, palpitations, shortness of breath, dyspnea on exertion, cough, lower extremity swelling, sore throat, fevers, chills, nausea, vomiting, diarrhea , constipation, abdominal pain, pelvic pain, blood in urine or stool, dysuria, urinary frequency or urgency, headache, rash, abnormal bruising or bleeding, imbalance, focal weakness, numbness or tingling in arms or legs, generalized arthralgias or myalgias, back or neck pain, or night sweats. The review of systems is otherwise negative other than for that already noted above, and at least 10 systems have been reviewed. Physical Exam Physical Exam: The patient is awake, alert and oriented 3, well developed and well nourished, normocephalic and atraumatic, lying in bed and in no acute distress. HEENT--PERRL, EOMI, mucous membranes and oropharynx normal. Neck--supple. No JVD. No bruits. Thyroid normal, trachea midline, no adenopathy. Heart--normal S1 and S2. No murmurs, rubs or gallops. Lungs--clear bilaterally, no respiratory distress, no accessory muscle use. Abdomen--normal bowel sounds and soft. Nontender. Nondistended. Extremities--no cyanosis or clubbing. No edema. There are good distal pulses b/l. Dermatologic--normal skin turgor, normal color, no abnormal lymph nodes, no rash. Neurologic--cranial nerves II through XII grossly intact. Otherwise limited by pain Rheumatologic--as expected status post bilateral total knee arthroplasty Psychiatric--normal affect. Results & Data Vital Signs (Past 12 Hours) Vital Signs Temp Pulse Resp BP Pulse Ox 04/04/19 21:00 99 H 15 127/74 04/04/19 20:30 99 H 15 125/69 04/04/19 20:01 93 H 13 98 04/04/19 20:00 95 H 15 120/66 98 04/04/19 19:27 100 04/04/19 19:10 98.6 F 98 H 19 127/62 100 Laboratory Results Laboratory Results WBC 12.85 K/uL (4.8-10.8) H 04/04/19 18:31 RBC 2.72 M/uL (4.7-6.1) L 04/04/19 18:31 Hgb 8.2 g/dL (14.0-18.0) L 04/04/19 18:31 POC Hgb 6.8 g/dl (14.0-18.0) L* 04/04/19 19:19 Hct 24.2 % (42-52) L 04/04/19 18:31 POC Hct 20 % (42-52) L* 04/04/19 19:19 MCV 89.0 fL (80-100) 04/04/19 18:31 MCH 30.1 pg (25-34) 04/04/19 18:31 MCHC 33.9 g/dL (32-36) 04/04/19 18: RDW Std Deviation 44.6 fL (36.4-46.3) 04/04/19 18: RDW Coeff of Yannick 13.7 % (11.5-14.5) 04/04/19 18: Plt Count 161 K/uL (130-400) 04/04/19 18: MPV 9.8 fL (7.4-10.4) 04/04/19 18:31 Immature Gran % (Auto) 0.3 % 04/04/19 18:31 Neut % (Auto) 72.6 % 04/04/19 18: Lymph % (Auto) 15.9 % 04/04/19 18: Brown % (Auto) 8.3 % 04/04/19 18: Eos % (Auto) 2.6 % 04/04/19 18: Baso % (Auto) 0.3 % 04/04/19 18: Immature Gran # (Auto) 0.04 K/uL (0.00-0.02) H 04/04/19 18:31 Neut # (Auto) 9.33 K/uL (1.4-6.5) H 04/04/19 18:31 Lymph # (Auto) 2.04 K/uL (1.2-3.4) 04/04/19 18:31 Brown # (Auto) 1.07 K/uL (0.11-0.59) H 04/04/19 18: Eos # (Auto) 0.33 K/uL (0-0.5) 04/04/19 18: Baso # (Auto) 0.04 K/uL (0-0.2) 04/04/19 18: PT 10.4 Seconds (9.0-12.0) 04/04/19 18: INR 1.0 (0.9-1.1) 04/04/19 18: APTT 31.6 Seconds (21.0-31.0) H 04/04/19 18: PTT Ratio 1.2 04/04/19 18: POC Sodium 136 mEq/L (135-144) 04/04/19 19:19 Sodium 137 mmol/L (136-145) 04/04/19 18:31 POC Potassium 3.9 mEq/L (3.3-5.0) 04/04/19 19:19 Potassium 3.9 mmol/L (3.5-5.1) 04/04/19 18:31 POC Chloride 98 mEq/L (101-112) L 04/04/19 19:19 Chloride 103 mmol/L (98-107) 04/04/19 18:31 Carbon Dioxide 29 mmol/L (21-32) 04/04/19 18:31 POC Total CO2 26 mEq/l (24-31) 04/04/19 19:19 Anion Gap 5.0 (3-11) 04/04/19 18:31 POC Anion Gap 16.0 mmol/L (16-25) 04/04/19 19:19 POC BUN 12 mg/dl (7-18) 04/04/19 19:19 BUN 13 mg/dl (7-18) 04/04/19 18:31 Creatinine 1.18 mg/dl (0.6-1.4) 04/04/19 18:31 POC Creatinine 1.0 mg/dl (0.6-1.3) 04/04/19 19:19 Est Cr Clr Drug Dosing 78.2 ml/min 04/04/19 18:31 Est GFR ( Amer) 83.5 04/04/19 18:31 Est GFR (Non-Af Amer) 72.0 04/04/19 18:31 BUN/Creatinine Ratio 10.7 (10-20) 04/04/19 18:31 Glucose 113 mg/dl (70-99) H 04/04/19 18:31 POC Glucose (other) 111 mg/dl (70-99) H 04/04/19 19:19 Calcium 8.4 mg/dl (8.5-10.1) L 04/04/19 18:31 POC Ioniz Calcium Nereyda 1.15 mmol/l (1.12-1.32) 04/04/19 19:19 Magnesium 2.2 mg/dl (1.8-2.4) 04/04/19 18:31 Total Bilirubin 0.4 mg/dl (0.2-1) 04/04/19 18:31 AST 22 U/L (15-37) 04/04/19 18:31 ALT 17 U/L (12-78) 04/04/19 18:31 Alkaline Phosphatase 78 U/L (45-117) 04/04/19 18:31 Total Creatine Kinase 258 U/L (39-308) 04/04/19 18:31 CK-MB (CK-2) < 1.0 ng/ml (0.5-3.6) 04/04/19 18:31 CK/CKMB % Calc TNP 04/04/19 18:31 Troponin I < 0.015 ng/ml (0-0.045) 04/04/19 18:31 Total Protein 6.4 gm/dl (6.4-8.2) 04/04/19 18:31 Albumin 3.0 gm/dl (3.4-5.0) L 04/04/19 18:31 Globulin 3.4 gm/dl (2.5-4.0) 04/04/19 18:31 Albumin/Globulin Ratio 0.9 (0.9-2) 04/04/19 18:31 Lipase 53 U/L (73-393) L 04/04/19 18:31 TSH 1.330 uIu/ml (0.300-4.500) 04/04/19 18:31 Urine Color Yellow 04/04/19 20:18 Urine Appearance Clear (Clear) 04/04/19 20:18 Urine pH 7.0 (4.5-7.5) 04/04/19 20:18 Ur Specific Aurora > 1.045 (1.000-1.030) H 04/04/19 20:18 Urine Protein Negative (Negative) 04/04/19 20:18 Urine Glucose (UA) Negative (Negative) 04/04/19 20:18 Urine Ketones Negative (Negative) 04/04/19 20:18 Urine Blood Negative (Negative) 04/04/19 20:18 Urine Nitrite Negative (Negative) 04/04/19 20:18 Urine Bilirubin Negative (Negative) 04/04/19 20:18 Urine Urobilinogen Negative (Negative) 04/04/19 20:18 Ur Leukocyte Esterase Negative (Negative) 04/04/19 20:18 Diagnostic Findings [facility], [place] [phone] CT Scan Report Patient: NAZ ARNOLD Date: 04/04/19 MR#: [id number]: [address] [facility] Acct ID:[id number]: Date: 1970[facility] Zip: [place] [address] Age: 48Location: ED Sex: M Room/Bed: Att Phy:Diagnosis: SYNCOPE Liz Phy: TaviaOlga stein, DOService Date: 04/04/19 Fam Phy:Interpreting Phy: Rodrigue Walker MD Admit Phy: Ordering Phy: Porter Harman DO cc: ~ HEAD CT NONCONTRAST CT DOSE: HISTORY: syncope TECHNIQUE: Multiaxial CT images of the head were performed without the use of intravenous contrast. Automated exposure control was utilized for this study. A dose lowering technique was utilized adhering to the principles of ALARA. Comparison: None. Findings: Mild mucosal thickening within the paranasal sinuses. The mastoid air cells are clear. The calvarium and skull base are intact. The ventricles and sulci are within normal limits. There is no mass, hematoma, midline shift, or acute infarct. Impression: No acute intracranial abnormality. Electronically signed by: Rodrigue Walker M.D. 04/04/2019 8:01 PM Dictated: 04/04/191956 Transcribed: 04/04/191956 [facility], [place] [phone] CT Scan Report Patient: NAZ ARNOLD Date: 04/04/19 MR#: [id number]: [address] [facility] Acct ID:[id number]: Date: 1970[facility] Zip: [place] [address] Age: 48Location: ED Sex: M Room/Bed: Att Phy:Diagnosis: SYNCOPE Liz Phy: DanteOlga joe, DOService Date: 04/04/19 [facility] Phy:Interpreting Phy: Rodrigue Walker MD Admit Phy: Ordering Phy: Porter Harman DO cc: ~ CHEST CTA for PULMONARY ARTERIES CT DOSE: 1655.53 mGy.cm HISTORY: Syncope. TECHNIQUE: Multiaxial CT images of the chest were performed following the intravenous administration of contrast to evaluate the pulmonary arteries. Maximal intensity projection images were also obtained. A dose lowering technique was utilized adhering to the principles of ALARA. COMPARISON STUDY: Chest CTA 06/26/2017. FINDINGS: Normal caliber thoracic aorta with no evidence for dissection. The heart is normal in size. No pleural or pericardial effusions. No definite filling defects within the pulmonary arteries to suggest pulmonary embolus. Mild respiratory motion artifact. Normal esophagus. No mediastinal or hilar lympha denopathy. Limited views of the upper abdomen demonstrate a normal liver and spleen. The adrenal glands are unremarkable. Mild thickening at the gastric antrum. This is likely incidental and may represent a gastritis. Recommend correlation with nonemergent endoscopy for further evaluation. No suspicious lytic are blastic osseous lesions. The central airways are patent. No pneumothorax. Stable 5 mm triangular-shaped nodule within the left upper lobe on image 206. Stable 4 mm nodule within the left upper lobe on image 247. No new pulmonary nodules. These are likely benign given the long-term stability. No focal lung consolidations to suggest pneumonia. Groundglass densities within the lungs posteriorly favor mild dependent change. IMPRESSION: 1. No evidence for pulmonary embolus. 2. Stable subcentimeter pulmonary nodule within the left upper lobe. These are likely benign given the long-term stability. 3. Mild thickening at the gastric antrum. This is likely incidental and may represent a gastritis. Recommend follow-up with nonemergent endoscopy for further evaluation. Electronically signed by: Rodrigue Walker M.D. 04/04/2019 8:10 PM Dictated: 04/04/192000 Transcribed: 04/04/192000 Code Status & VTE Plan Code Status Full code VTE Prophylaxis Plan VTE Prophylaxis will be ordered: Yes PG Care Time/CCT Total # of Minutes Spent Total Time Spent with Patient: Total time spent is greater than 50% in coordination of care (as documented) at patient's floor/unit and/or counseling patient: (1) Syncope Syncope type: unspecified Qualified Code(s): R55 - Syncope and collapse (2) Anemia Anemia type: unspecified type Qualified Code(s): D64.9 - Anemia, unspecified
[2019-04-04] MEDS: HYDROmorphone HCL 2 MG TAB PO PRN (22:45)
[2019-04-05] MEDS: FAMOTIDINE 20 MG TAB PO SCH ×3 (00:30→20:54)
[2019-04-05] MEDS: ASPIRIN 81 MG ECTAB PO SCH ×3 (00:31→20:54)
[2019-04-05] MEDS: MoRPHine SULFATE 4 MG/ML 1 ML CARP\\VIAL IV PRN ×4 (00:32→23:53)
[2019-04-05] MEDS: FERROUS GLUCONATE 324 MG TAB PO SCH ×2 (07:52→16:17)
[2019-04-05] MEDS: HYDROmorphone HCL 2 MG TAB PO PRN ×2 (07:58→19:31)
[2019-04-05 09:54] LABS: Hematocrit (blood only) 21.2 % (42-52); Hemoglobin 7.2 g/dL (14.0-18.0); Mean Corpuscular Hemoglobin 30.1 pg (25-34); Mean Corpuscular Volume 88.7 fL (80-100); Mean Platelet Volume 9.3 fL (7.4-10.4); Platelet Count 148 K/uL (130-400); RDW Coefficient of Variation 13.8 % (11.5-14.5); RDW Standard Deviation 45.6 fL (36.4-46.3); Red Blood Count 2.39 M/uL (4.7-6.1); White Blood Count 8.96 K/uL (4.8-10.8)
[2019-04-05 10:19] LABS: BUN Creatinine Ratio 10.2 (10-20); Blood Urea Nitrogen 9 mg/dl (7-18); Calcium 8.4 mg/dl (8.5-10.1); Carbon Dioxide 30 mmol/L (21-32); Chloride 103 mmol/L (98-107); Creatinine Clr Calc Pharmacy 104.8 ml/min; Est GFR (African American) 116.9; Est GFR (Non-African American) 100.9; Glucose 99 mg/dl (70-99); Sodium 136 mmol/L (136-145)
[2019-04-05 10:22] LABS: Troponin I < 0.015 ng/ml (0-0.045)
[2019-04-05] MEDS ORDERED: SODIUM CHLORIDE 0.9% 250 ML IV PRN (11:02)
[2019-04-05] MEDS: POLYETHYLENE (MIRALAX) 17 GM PACK PO SCH ×2 (11:28→20:54)
[2019-04-05] MEDS: SENNA 8.6 MG TAB PO SCH (12:01)
[2019-04-05] MEDS: ACETAMINOPHEN 500 MG TAB PO SCH ×2 (13:34→20:53)
--- NOTE | 2019-04-05 15:29 | Progress Note ---
DATE: 04/05/2019 SUBJECTIVE: A 48-year-old gentleman now postop day 3 from bilateral knee replacements. We discharged him yesterday and he had a syncopal episode at home last evening and was brought back to the Emergency Room. He has been admitted by the medicine service for difficulty getting around and possible rehab option. His pain has been reasonably controlled. Denies any current chest pain or shortness of breath. He says he is not sure what happened, does not remember what happened. He has no new pains. The right knee continues to bother him more than the left. He did have an extensive workup including head and chest CTs, which were negative for PE or head injury. OBJECTIVE: VITAL SIGNS: Temperature is 37.1. Vital signs stable. GENERAL: Shows a pleasant, middle-aged male. He is sitting up in bed and looks pretty comfortable. EXTREMITIES: Examination of both legs reveals the incision to be well approximated. He does have some moderate swelling, the right side is a little bit worse than the left with little fracture blister over the proximal medial tibia on the right side. There are no signs of drainage. His compartments are soft. He can dorsiflex and plantarflex both feet appropriately without any significant pain or discomfort. He cannot do a straight leg raise on either side. LABORATORY DATA: His hemoglobin last night was 8.2, which is stable but this morning 7.2 after hydration. His hematocrit was at 24.2 and then 21.2 after some IV hydration. His electrolytes are stable. ASSESSMENT: A 48-year-old gentleman now 3 days out from bilateral knee replacements with a syncopal episode. It sounds like almost a vasovagal episode. He is anemic, but at 48 years old, he can tolerate a low hemoglobin. If anything, it is just a volume status issue. He is not markedly tachycardic and his blood pressure seems to be pretty well maintained otherwise. He had a little difficulty with pain control, but seems pretty comfortable clinically. PLAN: 1. DVT prophylaxis including thigh-high TEDs, SCDs, and aspirin twice a day. 2. PT/OT. He can weightbear as tolerated. 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 3. Medical management as per the medicine service. 4. Disposition: They are looking for rehab options for this gentleman. I think orthopedically he is okay to be discharged anytime. I once again need to see him back 2 weeks out from the surgery date. Any orthopedic questions can be directed to me at [phone].
--- NOTE | 2019-04-05 16:03 | Hospitalist Progress Note ---
Date of Service April 05, 2019 Assessment & Plan (1) Symptomatic anemia: Pre-op Hb was 15.3. Hb 04/04/19 was 8.2. Now 7.2 (likely due to fluids yesterday, additional blood draws in ER, etc). He is orthostatic based on my BP checks I did during my bedside rounds (drop of about 15 points systolically from supine to sitting) and had syncope yesterday. He is truly symptomatic from his acute blood loss anemia in the face of his b/l TKR. Will Tx 1 unit PRBCs. Consent obtained. Repeat CBC am. (2) Acute blood loss anemia: 2nd to recent b/l TKR. Now symptomatic from such. Tx 1 unit PRBCs today. Cont Fe supplementation x 3 months. CBC am. (3) Syncope: Likely due to significant acute blood loss anemia as above. Cont to hold LUPILLO. CV examination wnl. No PE on CTA chest. Telemetry thus far normal. No recurrent syncopal events since here. Receiving 1 unit of PRBCs for symptomatic anemia. (4) Gastritis: As noted on CT chest yesterday. No symptoms. Placed on H2 malou last evening - continue such. Will need EGD as outpatient to confirm diagnosis, exclude other pathology, etc. (5) Nodule of left lung: Stable size of nodules in comparison to 2018 CT. This suggests benign etiology. In light of ongoing tobacco use this needs to be followed carefully post-d/c by pulmonary nodule clinic. (6) Status post total bilateral knee replacement: POD #3. Performed by Dr Sj Crump. He saw patient in consult today; nothing from orthopedic standpoint at this t vernell. Cont asa BID for DVT proph. Patient would benefit from inpatient rehab based on limited mobility, poor pain control, higher risk of falls, recent syncope, etc. For b/l pain - tylenol 1gm TID. He had been d/c home on dilaudid PO by orthopedics yesterday. This has been continued. (7) Ambulatory dysfunction: PT, OT. 2nd to pain from b/l TKR. Needs rehab (see therapy notes from today strongly recommending this). (8) Constipation: narcotic-associated. add senna 2 tabs daily. add miralax BID. (9) HTN (hypertension): hold LUPILLO due to severe acute blood loss anemia (10) DVT prophylaxis: asa 81mg BID appreciate ortho assistance wound care consult placed for small ulceration on medial aspect of right knee region appreciate SW assistance for rehab placement will change Obs status to full admission status Subjective patient again confirms he had dizziness prior to his episode of syncope yesterday. he had had mild dizziness during his stay for the b/l TKR surgery. no dyspnea or chest pain today. telemetry wnl overnight. his main complaint is that of severe b/l knee pain, worse on right. he does not want to bend the knees because of pain. he states "my family had to carry me into my home" yesterday after he had been discharged home. he IS OPEN to going to rehab knowing how limited his mobility is and how much pain he is having. denies any abd pain, melena stools, pain w/ eating, etc. I discussed with him the CT finding of possible gastritis. He does not use NSAIDs on a regular basis. No etoh use. Continues to smoke. Review of Systems Constitutional: + fatigue; no anorexia Respiratory: no dyspnea on exertion Cardiovascular: no chest pain and no palpitations Gastrointestinal: + constipation (no BM since Monday of this week); no nausea and no vomiting Musculoskeletal: + joint pain (b/l knee pain ) Physical Exam Constitutional: well developed and well nourished; no acute distress and no altered mental status ENMT: external ear and nose normal, oropharynx normal Respiratory: normal respiratory effort, lungs clear to auscultation Cardiovascular: Rate/Rhythm: regular rate and regular rhythm Heart Sounds: normal S1 and normal S2; no murmur Vessels: posterior tibial pulses present and dorsalis pedis pulses present; no JVD Extremities: + edema (<1+ b/l ) Gastrointestinal (Abdomen): normal bowel sounds, soft, nontender, no hepatosplenomegaly Musculoskeletal: mild swelling both knees Skin: + pallor b/l knee replacement incisions clean; yeni intact; prior fluid-filled blister, medial aspect of right knee, now resolved; overlying ecchymoses with tiny ulceration on inferior portion of this region Psychiatric: A+Ox3, euthymic affect Results & Data Vital Signs (Past 12 Hours) Vital Signs Temp Pulse Pulse Resp BP BP Pulse Ox 04/05/19 15:49 37.2 C 89 14 128/81 98 04/05/19 15:46 37.2 C 70 14 128/81 94 04/05/19 15:45 91 H 04/05/19 15:44 37.2 C 87 14 128/81 99 04/05/19 15:30 103 H 04/05/19 15:15 102 H 04/05/19 15:00 104 H 04/05/19 14:45 95 H 04/05/19 14:33 37.1 C 93 H 18 110/75 99 04/05/19 14:30 88 04/05/19 14:15 93 H 04/05/19 14:00 37.5 C 101 H 122/77 97 04/05/19 13:45 100 H 04/05/19 13:30 37.5 C 99 H 18 149/74 H 98 04/05/19 13:15 37.5 C 101 H 18 131/73 99 04/05/19 13:00 102 H 04/05/19 12:56 37.5 C 103 H 16 134/78 04/05/19 12:45 106 H 04/05/19 12:35 113 H 04/05/19 12:15 108 H 04/05/19 12:00 102 H 04/05/19 11:45 94 H 04/05/19 11:30 97 H 04/05/19 11:15 94 H 04/05/19 11:10 36.8 C 97 H 18 145/79 H 99 04/05/19 11:00 104 H 04/05/19 10:45 94 H 04/05/19 10:30 86 04/05/19 10:15 93 H 04/05/19 10:00 98 H 04/05/19 09:45 95 H 04/05/19 09:30 87 04/05/19 09:15 92 H 04/05/19 09:00 88 04/05/19 08:46 91 H 04/05/19 08:45 91 H 04/05/19 08:30 90 04/05/19 08:15 90 04/05/19 08:00 94 H 04/05/19 07:54 37.1 C 89 97 H 122/69 97 04/05/19 07:45 87 04/05/19 07:30 102 H 04/05/19 07:15 91 H 04/05/19 07:00 90 04/05/19 06:45 86 11/15/19 06:30 91 H 04/05/19 06:15 86 04/05/19 06:00 89 04/05/19 05:45 88 04/05/19 05:30 88 04/05/19 05:15 86 04/05/19 05:00 90 04/05/19 04:45 88 04/05/19 04:30 93 H Laboratory Results Laboratory Results - last 24 hr 04/04/19 04/04/19 04/04/19 18:31 18:31 18:31 WBC 12.85 H RBC 2.72 L Hgb 8.2 L POC Hgb Hct 24.2 L POC Hct MCV 89.0 MCH 30.1 MCHC 33.9 RDW Std Deviation 44.6 RDW Coeff of Yannick 13.7 Plt Count 161 MPV 9.8 Immature Gran % (Auto) 0.3 Neut % (Auto) 72.6 Lymph % (Auto) 15.9 [place] % (Auto) 8.3 Eos % (Auto) 2.6 Baso % (Auto) 0.3 Immature Gran # (Auto) 0.04 H Neut # (Auto) 9.33 H Lymph # (Auto) 2.04 [place] # (Auto) 1.07 H Eos # (Auto) 0.33 Baso # (Auto) 0.04 PT 10.4 INR 1.0 APTT 31.6 H PTT Ratio 1.2 POC Sodium Sodium 137 POC Potassium Potassium 3.9 POC Chloride Chloride 103 Carbon Dioxide 29 POC Total CO2 Anion Gap 5.0 POC Anion Gap POC BUN BUN 13 Creatinine 1.18 POC Creatinine Est Cr Clr Drug Dosing 78.2 Est GFR ( Amer) 83.5 Est GFR (Non-Af Amer) 72.0 BUN/Creatinine Ratio 10.7 Glucose 113 H POC Glucose (other) Calcium 8.4 L POC Ioniz Calcium Nereyda Magnesium 2.2 Total Bilirubin 0.4 AST 22 ALT 17 Alkaline Phosphatase 78 Total Creatine Kinase 258 CK-MB (CK-2) < 1.0 CK/CKMB % Calc TNP Troponin I < 0.015 Total Protein 6.4 Albumin 3.0 L Globulin 3.4 Albumin/Globulin Ratio 0.9 Lipase 53 L TSH 1.330 Urine Color Urine Appearance Urine pH Ur Specific [place] Urine Protein Urine Glucose (UA) Urine Ketones Urine Blood Urine Nitrite Urine Bilirubin Urine Urobilinogen Ur Leukocyte Esterase Blood Type Antibody Screen Crossmatch 04/04/19 04/04/19 04/05/19 19:19 20:18 09:41 WBC 8.96 RBC 2.39 L Hgb 7.2 L POC Hgb 6.8 L* Hct 21.2 L POC Hct 20 L* MCV 88.7 MCH 30.1 MCHC 34.0 RDW Std Deviation 45.6 RDW Coeff of Yannick 13.8 Plt Count 148 MPV 9.3 Immature Gran % (Auto) Neut % (Auto) Lymph % (Auto) [place] % (Auto) Eos % (Auto) Baso % (Auto) Immature Gran # (Auto) Neut # (Auto) Lymph # (Auto) [place] # (Auto) Eos # (Auto) Baso # (Auto) PT INR APTT PTT Ratio POC Sodium 136 Sodium POC Potassium 3.9 Potassium POC Chloride 98 L Chloride Carbon Dioxide POC Total CO2 26 Anion Gap POC Anion Gap 16.0 POC BUN 12 BUN Creatinine POC Creatinine 1.0 Est Cr Clr Drug Dosing Est GFR ( Amer) Est GFR (Non-Af Amer) BUN/Creatinine Ratio Glucose POC Glucose (other) 111 H Calcium POC Ioniz Calcium Nereyda 1.15 Magnesium Total Bilirubin AST ALT Alkaline Phosphatase Total Creatine Kinase CK-MB (CK-2) CK/CKMB % Calc Troponin I Total Protein Albumin Globulin Albumin/Globulin Ratio Lipase TSH Urine Color Yellow Urine Appearance Clear Urine pH 7.0 Ur Specific [place] > 1.045 H Urine Protein Negative Urine Glucose (UA) Negative Urine Ketones Negative Urine Blood Negative Urine Nitrite Negative Urine Bilirubin Negative Urine Urobilinogen Negative Ur Leukocyte Esterase Negative Blood Type Antibody Screen Crossmatch 04/05/19 04/05/19 09:41 11:24 WBC RBC Hgb POC Hgb Hct POC Hct MCV MCH MCHC RDW Std Deviation RDW Coeff of Yannick Plt Count MPV Immature Gran % (Auto) Neut % (Auto) Lymph % (Auto) [place] % (Auto) Eos % (Auto) Baso % (Auto) Immature Gran # (Auto) Neut # (Auto) Lymph # (Auto) [place] # (Auto) Eos # (Auto) Baso # (Auto) PT INR APTT PTT Ratio POC Sodium Sodium 136 POC Potassium Potassium 4.0 POC Chloride Chloride 103 Carbon Dioxide 30 POC Total CO2 Anion Gap 3.0 POC Anion Gap POC BUN BUN 9 Creatinine 0.88 D POC Creatinine Est Cr Clr Drug Dosing 104.8 Est GFR ( Amer) 116.9 Est GFR (Non-Af Amer) 100.9 BUN/Creatinine Ratio 10.2 Glucose 99 POC Glucose (other) Calcium 8.4 L POC Ioniz Calcium Nereyda Magnesium Total Bilirubin AST ALT Alkaline Phosphatase Total Creatine Kinase CK-MB (CK-2) CK/CKMB % Calc Troponin I < 0.015 Total Protein Albumin Globulin Albumin/Globulin Ratio Lipase TSH Urine Color Urine Appearance Urine pH Ur Specific [place] Urine Protein Urine Glucose (UA) Urine Ketones Urine Blood Urine Nitrite Urine Bilirubin Urine Urobilinogen Ur Leukocyte Esterase Blood Type A Positive Antibody Screen NEGATIVE Crossmatch See Detail PG Care Time/CCT Total # of Minutes Spent Total Time Spent with Patient: Total time spent is greater than 50% in coordination of care (as documented) at patient's floor/unit and/or counseling patient: (1) Gastritis Gastritis type: unspecified gastritis Chronicity: unspecified Gastritis bleeding: without bleeding Qualified Code(s): K29.70 - Gastritis, unspecified, without bleeding (2) Syncope Syncope type: unspecified Qualified Code(s): R55 - Syncope and collapse (3) Constipation Constipation type: drug induced constipation Qualified Code(s): K59.03 - Drug induced constipation (4) HTN (hypertension) Hypertension type: essential hypertension Qualified Code(s): I10 - Essential (primary) hypertension
[2019-04-05 17:27] LABS: Hematocrit (blood only) 21.9 % (42-52); Hemoglobin 7.6 g/dL (14.0-18.0); Mean Corpuscular Hemoglobin 30.9 pg (25-34); Mean Corpuscular Hgb Conc 34.7 g/dL (32-36); Mean Platelet Volume 9.7 fL (7.4-10.4); Platelet Count 157 K/uL (130-400); RDW Coefficient of Variation 13.5 % (11.5-14.5); RDW Standard Deviation 44.4 fL (36.4-46.3); Red Blood Count 2.46 M/uL (4.7-6.1); White Blood Count 8.59 K/uL (4.8-10.8)
[2019-04-05] MEDS: NICOTINE 7 MG/24 HR TDSY TD SCH (17:29)
[2019-04-06] MEDS: HYDROmorphone HCL 2 MG TAB PO PRN ×3 (03:37→21:10)
[2019-04-06] MEDS: MoRPHine SULFATE 4 MG/ML 1 ML CARP\\VIAL IV PRN (06:25)
[2019-04-06 07:13] LABS: Hematocrit (blood only) 23.1 % (42-52); Mean Corpuscular Hemoglobin 30.8 pg (25-34); Mean Corpuscular Hgb Conc 34.6 g/dL (32-36); Mean Corpuscular Volume 88.8 fL (80-100); Mean Platelet Volume 9.4 fL (7.4-10.4); Platelet Count 194 K/uL (130-400); RDW Coefficient of Variation 13.8 % (11.5-14.5); RDW Standard Deviation 45.1 fL (36.4-46.3); White Blood Count 7.95 K/uL (4.8-10.8)
[2019-04-06] MEDS: POLYETHYLENE (MIRALAX) 17 GM PACK PO SCH ×2 (07:35→21:04)
[2019-04-06] MEDS: ASPIRIN 81 MG ECTAB PO SCH ×2 (07:35→21:04)
[2019-04-06] MEDS: FERROUS GLUCONATE 324 MG TAB PO SCH (07:35)
[2019-04-06] MEDS: NICOTINE 7 MG/24 HR TDSY TD SCH (07:35)
[2019-04-06] MEDS: ACETAMINOPHEN 500 MG TAB PO SCH ×3 (07:36→21:05)
[2019-04-06] MEDS: FAMOTIDINE 20 MG TAB PO SCH ×2 (07:36→21:04)
[2019-04-06] MEDS: SENNA 8.6 MG TAB PO SCH (07:36)
--- NOTE | 2019-04-06 09:13 | Progress Note ---
DATE: 04/06/2019 SUBJECTIVE: A 48-year-old gentleman postop day #4 from bilateral knee replacement. He was discharged on and then readmitted evening with syncopal episode. Pretty extensive workup which has all been negative. He was anemic and he has gotten some blood. He is feeling fine this morning. Pain seems to be getting better. Denies any chest pain or shortness of breath. Not feeling dizzy or lightheaded. OBJECTIVE: VITAL SIGNS: Temperature 36.8. Vital signs stable. Blood pressure looks good at 122/73. GENERAL: Shows a pleasant, middle-aged male. He is sitting up in bed and eating breakfast. He looks completely comfortable. EXTREMITIES: Examination of both legs reveals the dressing to be clean, dry and intact. There is no active bleeding. A little bit more swelling on the right than the left, but nothing abnormal. His calves are soft and supple. He is neurologically intact. LABORATORY DATA: Hemoglobin is 8.0. Hematocrit 23.4. ASSESSMENT: A 48-year-old gentleman postop day #4 from bilateral knee replacement, is readmitted with a syncopal episode. Seems to be doing well clinically now. He got some blood. His creatinine is improved. There is suggestion of an improved hydration and better volume status. PLAN: From the orthopedic standpoint, this patient is okay for discharge any time. His was let him go to rehab and that certainly acceptable to us, but will not get the answer to that until Monday. I am okay with him going home with home health if that is what they decide. I think he will do fine with that. As far as DVT prophylaxis, the plan will be thigh-high TEDs, SCDs in the hospital and a baby aspirin twice a day. As far as pain control, he was taken to p.o. Dilaudid on the outside. He should be taking Tylenol around the clock. We can give him some Toradol while in the hospital and we could discharge him on p.o. Toradol if pain is not controlled with the other meds. DISPOSITION: Disposition is pending. I am okay with him going home with home health if family is okay with that. I will be happy to answer any orthopedic questions at [phone]. NEREIDA
[2019-04-06] MEDS: KETOROLAC 30 MG/ML VIAL IV SCH ×3 (09:33→21:05)
[2019-04-06] MEDS ORDERED: IRON SUCROSE 200 MG in 0.9 % SODIUM CHLORIDE 100 ML IV ONE (10:00)
[2019-04-06] MEDS ORDERED: SODIUM CHLORIDE 0.9% 1000ML 1,000 ML IV ONE (14:01)
--- NOTE | 2019-04-06 14:28 | Hospitalist Progress Note ---
Date of Service April 06, 2019 Assessment & Plan (1) Symptomatic anemia: Pre-op Hb was 15.3. Hgb on 04/04/19 was 8.2. - Hgb was down to 6.8 on 04/05. - He received 1 unit PRBCs on 04/05. - Today hgb is 8.0. He is feeling better, but still orthostatic on standing. - Gave IV iron on 04/06. (2) Acute blood loss anemia: 2nd to recent b/l TKR. Now symptomatic from such. - See above (3) Syncope: Likely due to significant acute blood loss anemia as above. - Cont to hold LUPILLO. - 1L NS bolus on 04/06 for continued orthostasis (4) HTN (hypertension): BP is 116/67 with positive orthostatics. - Hold ACEi (5) Gastritis: As noted on CT chest on 04/04. No symptoms. - Placed on H2 malou while on ASA BID - CT chest indicates non-emergent endoscopy. (6) Nodule of left lung: Stable size of nodules in comparison to 2018 CT. This suggests benign etiology. - In light of ongoing tobacco use this needs to be followed carefully post - d/c by pulmonary nodule clinic. (7) Status post total bilateral knee replacement: Done on 04/02 by Sj Crump. - He saw patient in consult today; nothing from orthopedic standpoint at this time. - Cont ASA BID for DVT proph. (8) Ambulatory dysfunction: 2nd to pain from b/l TKR. - PT/OT - Possible rehab (9) Constipation: Narcotic-associated. - Continue senna 2 tabs daily & Miralax BID. (10) DVT prophylaxis: ASA 81mg BID Subjective Doing well though still very lightheaded and dizzy with standing. Pain with standing and moving. Reports no fevers/chills, chest pain, shortness of breath, abdominal pain, nausea, or vomiting. Physical Exam Constitutional: + physical limitations and cooperative Eyes: EOM intact bilaterally; no conjunctival abnormality ENMT: external ear and nose normal, oropharynx normal Neck: trachea midline, no thyromegaly normal visual inspection Respiratory: normal respiratory effort, lungs clear to auscultation no respiratory distress Cardiovascular: RRR, no murmur, no edema Gastrointestinal (Abdomen): Inspection/Auscultation: abdomen normal to inspection; abdomen not distended Musculoskeletal: no cyanosis or clubbing, extremities motor strength 5/5 Skin: no rashes, warm and dry Neurologic: moves all extremities and awake Psychiatric: Orientation: alert, oriented to person and cooperative Results & Data Vital Signs (Past 12 Hours) Vital Signs Temp Pulse Pulse Resp BP Pulse Ox 04/06/19 11:29 36.7 C 83 16 116/67 99 04/06/19 08:06 96 H 04/06/19 07:39 36.8 C 93 H 16 122/73 98 04/06/19 03:13 36.8 C 98 H 17 119/80 97 PG Care Time/CCT Total # of Minutes Spent Total Time Spent with Patient: Total time spent is greater than 50% in coordination of care (as documented) at patient's floor/unit and/or counseling patient: (1) Syncope Syncope type: unspecified Qualified Code(s): R55 - Syncope and collapse (2) Gastritis Gastritis type: unspecified gastritis Chronicity: unspecified Gastritis bleeding: without bleeding Qualified Code(s): K29.70 - Gastritis, unspecified, without bleeding (3) Constipation Constipation type: drug induced constipation Qualified Code(s): K59.03 - Drug induced constipation (4) HTN (hypertension) Hypertension type: essential hypertension Qualified Code(s): I10 - Essential (primary) hypertension
[2019-04-07] MEDS: KETOROLAC 30 MG/ML VIAL IV SCH ×2 (03:58→10:13)
[2019-04-07 05:33] LABS: Hematocrit (blood only) 21.9 % (42-52); Hemoglobin 7.5 g/dL (14.0-18.0); Mean Corpuscular Hemoglobin 30.4 pg (25-34); Mean Corpuscular Hgb Conc 34.2 g/dL (32-36); Mean Corpuscular Volume 88.7 fL (80-100); Mean Platelet Volume 9.2 fL (7.4-10.4); Platelet Count 199 K/uL (130-400); RDW Coefficient of Variation 13.8 % (11.5-14.5); RDW Standard Deviation 45.2 fL (36.4-46.3); Red Blood Count 2.47 M/uL (4.7-6.1)
[2019-04-07 05:58] LABS: Calcium 8.5 mg/dl (8.5-10.1); Creatinine Clr Calc Pharmacy 109.8 ml/min; Est GFR (African American) 119.2; Est GFR (Non-African American) 102.8; Potassium 4.4 mmol/L (3.5-5.1)
[2019-04-07] MEDS: HYDROmorphone HCL 2 MG TAB PO PRN ×2 (07:38→13:19)
[2019-04-07 08:39] LABS: Ferritin 689.5 ng/ml (8-388)
[2019-04-07] MEDS ORDERED: FERROUS GLUCONATE 324 MG TAB PO SCH (09:00)
[2019-04-07 09:25] LABS: Reticulocyte % 2.2 % (0.5-2.0); Reticulocytes # 0.05 10^6/uL (0.02-0.10)
--- NOTE | 2019-04-07 09:30 | Progress Note ---
DATE: 04/07/2019 SUBJECTIVE: A 48-year-old gentleman now postop day 5 from bilateral knee replacements. He was readmitted with a syncopal episode. Extensive workup which is negative. He did get a blood transfusion. He seems to be doing pretty well now. Pain seems to be getting better daily. Still gets a little bit lightheaded intermittently. No chest pain or shortness of breath. Not feeling dizzy or lightheaded now. OBJECTIVE: VITAL SIGNS: Temperature 36.8. Vital signs stable. GENERAL: Shows a pleasant, middle-aged male. He is lying in bed, looks pretty comfortable. EXTREMITIES: Examination of both legs reveals the dressing to be clean, dry and intact. No significant drainage. His calves are soft and supple with some moderate swelling. He cannot quite do a straight leg raise on either side. He can dorsiflex and plantar flex his feet appropriately. LABORATORY DATA: Hemoglobin 7.5. Hematocrit 21.6. Electrolytes are stable. ASSESSMENT: A 48-year-old gentleman postop day 5 from bilateral knee replacement, readmitted for a syncopal episode. He continues to be anemic, but relatively asymptomatic. In someone of his age, he can tolerate a low hemoglobin. We prefer not to give him any more blood unless absolutely necessary as it can increase the infection rate. His pain seems to be getting better daily. PLAN: 1. DVT prophylaxis including thigh-high TEDs, SCDs and aspirin twice a day. 2. PT/OT. He can weightbear as tolerated. Bilateral knee protocol. 3. Pain control. Seems to be doing pretty well with current pain regimen. 4. Anemia/syncopal episode. We will continue iron supplementation. Blood pressure looks good this morning. He is not significantly tachycardic and just need to be slow transitioning from supine to walking and the sitting positions. We prefer to give no more blood. 5. Disposition. He is orthopedically okay for discharge any time medically stable. Looking into rehab options, would not be able to do that till tomorrow. I am okay with him being discharged to home with some home health if that decision is made.
[2019-04-07 09:56] LABS: Folate (Folic Acid) 8.37 ng/ml (>5.38)
[2019-04-07] MEDS: POLYETHYLENE (MIRALAX) 17 GM PACK PO SCH (10:14)
[2019-04-07] MEDS: NICOTINE 7 MG/24 HR TDSY TD SCH (10:14)
[2019-04-07] MEDS: FAMOTIDINE 20 MG TAB PO SCH (10:15)
[2019-04-07] MEDS: ASPIRIN 81 MG ECTAB PO SCH (10:15)
[2019-04-07] MEDS: SENNA 8.6 MG TAB PO SCH (10:15)
[2019-04-07] MEDS: ACETAMINOPHEN 500 MG TAB PO SCH (10:16)
--- NOTE | 2019-04-07 17:34 | Discharge Summary ---
Date of Service April 07, 2019 Admission HPI Per Admitting Provider The patient is a 48-year-old male who is status post bilateral total knee arthroplasty, admitted here on 04/02 and discharged earlier today on 04/04. The patient was at home, involved in a conversation, and then suddenly lost consciousness for about 10 minutes. His did notice profuse sweating prior to this episode, and he primarily complained of dizziness. He did also note that the severity of pain postoperatively was more significant than he thought it would be. His is concerned that he would have a similar problem if discharged to home again, and she feels that he would be better off in a rehab setting. Principal Diagnosis Symptomatic anemia Discharge Exam Constitutional + physical limitations and cooperative Eyes EOM intact bilaterally; no conjunctival abnormality ENMT external ear and nose normal, oropharynx normal Neck trachea midline, no thyromegaly normal visual inspection Respiratory normal respiratory effort, lungs clear to auscultation no respiratory distress Cardiovascular RRR, no murmur, no edema Gastrointestinal (Abdomen) Inspection/Auscultation: abdomen normal to inspection; abdomen not distended Musculoskeletal no cyanosis or clubbing, extremities motor strength 5/5 Skin no rashes, warm and dry Neurologic moves all extremities and awake Psychiatric Orientation: alert, oriented to person and cooperative Discharge Data Allergies Allergy/AdvReac Type Severity Reaction Status Date / Time No Known Allergies Allergy Verified 04/02/19 05:21 Consultations 04/04/19 20:49 ED Decision to Admit Stat 04/04/19 22:21 Consult Case Management - Discharge Planning Routine Ordered Studies 04/04/19 19:05 CT head/brain wo con Stat 04/04/19 19:07 CT angio chest PE protocol Stat Hospital Course (1) Symptomatic anemia: Pre-op Hb was 15.3. Hgb on 04/04/19 was 8.2. - Hgb was down to 6.8 on 04/05. - He received 1 unit PRBCs on 04/05. He got IV iron on 04/06. - On discharge, hgb was 7.5. I am not sure why he dropped from 8.0 to 7.5 today. His labs indicate he is still low on iron, despite a transfusion and IV iron. He denies any stomach pain/problems, bloody or melenic stools, diarrhea, constipation, or any large NSAID consumption. I would have probably kept him an extra day to give him IV iron and consider a GI consult (especially given the CT findings); however, he felt well and wanted to go home. I advised him to follow up with his PCP in 1-2 weeks and continue his oral iron. Could benefit from further investigation (celiac, IBD, gastritis/PUD) & GI consult if he remains anemic and has continued iron deficiency. (2) Acute blood loss anemia: 2nd to recent b/l TKR. - See above (3) Syncope: Likely due to significant acute blood loss anemia as above. - Cont to hold ACEi on discharge. - 1L NS bolus on 04/06 for continued orthostasis - Worked with PT and felt well on 04/07. Wanted to go home. (4) HTN (hypertension): BP was 116/67 on discharge. - Hold ACEi on discharge. Will restart when he sees his PCP if needed. (5) Gastritis: As noted on CT chest on 04/04. No symptoms, though has had anemia as above. - Placed on H2 malou while on ASA BID - CT chest indicates non-emergent endoscopy. (6) Nodule of left lung: Stable size of nodules in comparison to 2018 CT. This suggests benign etiology. - In light of ongoing tobacco use this needs to be followed carefully post - d/c by pulmonary nodule clinic. (7) Status post total bilateral knee replacement: Done on 04/02 by Sj Crump. - He saw patient in consult on 04/06; nothing from orthopedic standpoint at this time. - Cont ASA BID for DVT proph. (8) Ambulatory dysfunction: 2nd to pain from b/l TKR. (9) Constipation: Narcotic-associated. - Continue senna 2 tabs daily & Miralax BID. (10) DVT prophylaxis: ASA 81mg BID Total Time Total Time Spent Total Time Spent (In Minutes): 35 Total Time Includes: Examination of the Patient and Communication With Other Providers Discharge Plan Discharge Items Patient Disposition: Home - Home Health Services Reason For Visit: SYNCOPE,ANEMIA,S/P B/L TKA Discharge Diagnosis: Anemia, syncope Activity: Resume your previous activity Weightbearing: Full weightbearing Non-emergency contact: Primary Care Provider and Surgeon Call non-emergency contact if: your symptoms worsen, your pain is not controlled and your pain is worsening Follow-up/Referrals: Olga Maciel DO [Primary Care Provider] - Diet: Regular Addtl Attending Provider Instructions: You were admitted after an episode of passing out after your knee surgeries. Your blood counts were/are lower from the surgery. Your bone marrow will remake your red blood cells, and we gave you some IV iron to help jump start that. You worked with PT and felt you could do ok at home. We arranged home PT for you to help keep up the strengthening process. We sent in a script for an acid malou to prevent any stomach upset while you're on the baby aspirin to prevent blood clots. Finally, please hold (don't take) your lisinopril (blood pressure medication) until you see Dr. Maciel to help let your blood pressure stabilize after the surgery. If you have a blood pressure cuff at home, check it over the next few days to be sure it's not dropping below 100/50. If it is, call your doctor. Pending Studies at Discharge: No Stand-Alone Forms: My [facility], Smoking Cessation Medications and DC Order Prescriptions: New famotidine 20 mg Tablet 20 mg PO DAILY Qty: 30 RF: 0 Continued lisinopril 20 mg tablet 20 mg PO QAM Qty: 90 RF: 1 ferrous gluconate 324 mg (38 mg iron) Tablet 324 mg PO BIDM 30 Days Qty: 60 RF: 0 aspirin [Ecotrin Low Strength] 81 mg Tablet,Delayed Release (Dr/Ec) 81 mg PO BID 45 Days Qty: 90 RF: 0 acetaminophen [Tylenol Extra Strength] 500 mg tablet 1,000 mg PO Q8H RF: 0 hydromorphone 2 mg tablet 2 - 4 mg PO Q6H PRN (Reason: Pain) RF: 0 Discharge Orders: Discharge Order (Routine); Ordered 04/07/19 Ordered By: Kulwinder Diggs Admission Data Admit Date/Time: 04/05/19 17:14 Attending Provider: Kulwinder Diggs Admit Provider: Jesus Crum Primary Care Provider: Olga Maciel Other Providers: [facility] ; Kulwinder Diggs ; Jesus Crum Other Interventions: Discharge Summary Assessment (RN) Last Done: 04/07/19 13:22 DC Date/Time DO NOT enter until pt leaves facility: 04/07/19 13:52
== END 2019-04-07 13:52 | disposition home health service (06) | DRG 920 ==
LOC: 2N 18:56 → ED 18:56 → SUATTDRO 21:31 → 2N 21:59 → SUATTDRO 04-05 17:14 → 3W 04-06 14:20